=== PATIENT | female | born 1995 | race African-American/Black ===

== ENCOUNTER 2016-12-06 10:55 | Emergency (ER) | payer BC ==
[~2016-12-06] VITALS: Ht 160 cm; Wt 65.2 kg
[2016-12-06 11:03] VITALS: TEMP 36.9; Ht 160 cm; Wt 65.2 kg
[2016-12-06 11:54] LABS: BASO % 0.1 %; BASO ABS # 0.01 K/uL (0-0.2); COMPLETE YES; EOS % 1.5 %; HEMATOCRIT 37.7 % (37-47); IG% 0.1 %; LYMPH % 21.1 %; LYMPH ABS # 1.42 K/uL (1.2-3.4); MEAN CELL VOLUME 85.7 fL (80-100); MEAN CORPUSCULAR HEMOGLOBIN 28.6 pg (25-34); MEAN CORPUSCULAR HGB CONC 33.4 g/dl (32-36); MEAN PLATELET VOLUME 9.9 fL (7.4-10.4); MONO % 15.8 %; NEUT % 61.4 %; PLATELET COUNT 290 K/uL (130-400); WHITE BLOOD COUNT 6.73 K/uL (4.8-10.8)
[2016-12-06 12:11] LABS: BUN/CREATININE RATIO 10.7 (10-20); CALCIUM 9.3 mg/dl (8.5-10.1); CREATININE 0.72 mg/dl (0.60-1.20); POTASSIUM 3.8 mmol/L (3.5-5.1)
[2016-12-06 12:26] VITALS: O2SAT 98
[2016-12-06] MEDS ORDERED: SODIUM CHLORIDE 0.9% 1000ML 1,000 ML IV STA (12:56)
[2016-12-06] MEDS ORDERED: OPTIRAY 320 IV PRN (13:00)
--- NOTE | 2016-12-06 13:43 | DIAGNOSTIC IMAGING REPORT ---
CT ANGIOGRAPHY OF THE CHEST, PULMONARY EMBOLUS PROTOCOL CLINICAL HISTORY: Left-sided chest pain. Elevated d-dimer. COMPARISON STUDY: No previous studies for comparison. TECHNIQUE: Following IV administration of 92 mL of Optiray-320, helical axial images of the chest were obtained utilizing the pulmonary embolus protocol. Maximal intensity projections and sagittal and coronal reformats were viewed on an independent 3D workstation. IV contrast was administered without complication. A dose lowering technique was utilized adhering to the principles of ALARA. CT DOSE: 401.10 mGycm FINDINGS: No pulmonary emboli are identified. There is no evidence of thoracic aortic dissection. The size of the heart is normal. There is no pericardial effusion. There is no pneumothorax or pleural effusion. Central airways are patent. There are innumerable lower lung predominant ill-defined nodular airspace opacities, the largest of which is a 3.9 cm left basilar opacity. There is adjacent mild groundglass opacity. No cavitation is identified. Bony thorax and upper abdomen are unremarkable. IMPRESSION: 1. No pulmonary emboli identified. 2. Innumerable lower lung peripheral predominant ill-defined nodular airspace opacities. While this may simply represent multifocal pneumonia, the appearance raises the possibility of other etiologies. No cavitation to strongly suggest septic emboli although this remains within the differential. Additional considerations include a vasculitis such as Maile's granulomatosis and atypical infection such as fungal infection. Pulmonary consultation might be considered. A follow-up chest CT in one month to ensure resolution is recommended. Electronically signed by: Sloan Slater M.D. 12/06/2016 1:42 PM Dictated Date/Time: 12/06/2016 1:19 PM
[2016-12-06 14:04] LABS: PARTIAL THROMBOPLASTIN RATIO 1.2; PROTHROMBIN TIME (PATIENT) 10.6 SECONDS (9.0-12.0)
[2016-12-06] MEDS ORDERED: NAPR-1169 PO (14:22)
--- NOTE | 2016-12-06 14:22 | EMERGENCY ROOM VISIT NOTE ---
History First contact with patient: 11:21 Chief Complaint: RIB PAIN Stated Complaint: INFLAMMED SIDE History of Present Illness The patient is a 21 year old female who presents to the Emergency Room with complaints of left-sided rib pain. The patient states her discomfort began a few days ago. She states she does not feel that the pain is in her lungs, however does state that the discomfort on her left lateral thorax increases with taking deep breaths. The patient states she feels as if a rib is poking her and she breathes deeply. The patient states she was just recently seen at urgent care, where a chest x-ray was performed. She states this chest x-ray was negative for acute fracture or injury. The patient states urgent care referred the patient here to have labs completed to rule out a blood clot. 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 The patient denies recent travel. The patient states she had previously been taking oral contraceptive pills, however has not been taking them for one month. Patient is sexually active with 1 male partner, but does not feel that she could be at this time. The patient denies chest pain , fevers, tachycardia, palpitations, dyspnea, cough. She is a current smoker, and states she smokes 2-3 cigarettes per day. The patient also admits to marijuana use. Review of Systems A complete 10 point review of systems was reviewed with the patient with pertinent positives and negatives as per history of present illness. All else were negative. Social History Smoking Status: Current Every Day Smoker Smokeless Tobacco Use: No Alcohol Use: none Drug Use: marijuana Marital Status: single Housing Status: lives with significant other Occupation Status: employed Current/Historical Medications Scheduled Naproxen (Naprosyn), 500 MG PO BID Physical Exam Vital Signs Date Time Temp Pulse Resp B/P (MAP) Pulse Ox O2 Delivery O2 Flow Rate FiO2 12/06/16 15:11 68 18 104/70 96 12/06/16 13:40 68 23 93 12/06/16 13:25 76 19 106/61 100 12/06/16 12:55 82 104/70 100 12/06/16 12:40 72 10 100 12/06/16 12:35 68 12/06/16 12:34 70 22 106/52 97 Room Air 12/06/16 12:31 86/52 8/9/17 12:26 98 Room Air 12/06/16 11:03 36.9 103 18 118/67 96 Room Air Physical Exam VITALS: Vitals are noted on the nurse's note and reviewed by myself. Vital signs stable. GENERAL: This is a 21-year-old female, in no acute distress, nondiaphoretic, well-developed well-nourished. SKIN: The skin was without rashes, erythema, edema, or bruising. There is no tenting of the skin. Capillary reflex less than 2 seconds. HEAD: Normocephalic atraumatic. EARS: External auditory canals clear, tympanic membranes pearly doll without erythema or effusion bilaterally. EYES: Pupils equal round and reactive to light and accommodation. Conjunctivae without injection, sclerae without icterus. Extraocular movements intact. NOSE: Patent, turbinates without inflammation or discharge. No sinus tenderness. MOUTH: Mucous membranes moist. Tonsils are not enlarged. Pharynx without erythema or exudate. Uvula midline. Airway patent. Tongue does not deviate. NECK: Supple without nuchal rigidity. No lymphadenopathy. No thyromegaly. Cervical spine is nontender. No JVD. HEART: Regular rate and rhythm without murmurs gallops or rubs. LUNGS: Clear to auscultation bilaterally without wheezes, rales or rhonchi. No dullness to percussion. No retractions or accessory muscle use. ABDOMEN: Positive bowel sounds x 4. Normal tympanic percussion. Soft, nontender, without masses or organomegaly. Centeno sign negative. No guarding or rebound tenderness. MUSCULOSKELETAL: The patient does report mild tenderness on palpation of the left lateral thorax. There is no ecchymosis. No muscle atrophy, erythema, or edema noted. Full range of motion without joint tenderness in all extremities. No tenderness to palpation. Normal gait. Strength 5/5 throughout. NEURO: Patient was alert and oriented to person place and time. Normal sensation to light and sharp touch. Deep tendon reflexes 2+ throughout. No focal neurological deficits. Medical Decision & Procedures ER Provider Diagnostic Interpretation: Labs: CBC without concerning leukocytosis, anemia, chronic cytopenia. D-dimer was positive at 1880. Based on this result, CTA of the chest was ordered with PE protocol. CMP without abnormalities. PT, PTT, INR normal. CTA Chest, PE protocol: FINDINGS: No pulmonary emboli are identified. There is no evidence of thoracic aortic dissection. The size of the heart is normal. There is no pericardial effusion. There is no pneumothorax or pleural effusion. Central airways are patent. There are innumerable lower lung predominant ill-defined nodular airspace opacities, the largest of which is a 3.9 cm left basilar opacity. There is adjacent mild groundglass opacity. No cavitation is identified. Bony thorax and upper abdomen are unremarkable. IMPRESSION: 1. No pulmonary emboli identified. 2. Innumerable lower lung peripheral predominant ill-defined nodular airspace opacities. While this may simply represent multifocal pneumonia, the appearance raises the possibility of other etiologies. No cavitation to strongly suggest septic emboli although this remains within the differential. Additional considerations include a vasculitis such as Maile's granulomatosis and atypical infection such as fungal infection. Pulmonary consultation might be considered. A follow-up chest CT in one month to ensure resolution is recommended. Laboratory Results 12/06/16 11:35 Red Blood Count 4.40, Mean Corpuscular Volume 85.7, Mean Corpuscular Hemoglobin 28.6, Mean Corpuscular Hemoglobin Concent 33.4, Mean Platelet Volume 9.9, Neutrophils (%) (Auto) 61.4, Lymphocytes (%) (Auto) 21.1, Monocytes (%) (Auto) 15.8, Eosinophils (%) (Auto) 1.5, Basophils (%) (Auto) 0.1, Neutrophils # (Auto ) 4.13, Lymphocytes # (Auto) 1.42, Monocytes # (Auto) 1.06, Eosinophils # (Auto ) 0.10, Basophils # (Auto) 0.01 12/06/16 11:35 Test 12/06/16 11:35 White Blood Count 6.73 K/uL (4.8-10.8) Red Blood Count 4.40 M/uL (4.2-5.4) Hemoglobin 12.6 g/dL (12.0-16.0) Hematocrit 37.7 % (37-47) Mean Corpuscular Volume 85.7 fL (80-100) Mean Corpuscular Hemoglobin 28.6 pg (25-34) Mean Corpuscular Hemoglobin Concent 33.4 g/dl (32-36) Platelet Count 290 K/uL (130-400) Mean Platelet Volume 9.9 fL (7.4-10.4) Neutrophils (%) (Auto) 61.4 % Lymphocytes (%) (Auto) 21.1 % Monocytes (%) (Auto) 15.8 % Eosinophils (%) (Auto) 1.5 % Basophils (%) (Auto) 0.1 % Neutrophils # (Auto) 4.13 K/uL (1.4-6.5) Lymphocytes # (Auto) 1.42 K/uL (1.2-3.4) Monocytes # (Auto) 1.06 K/uL (0.11-0.59) Eosinophils # (Auto) 0.10 K/uL (0-0.5) Basophils # (Auto) 0.01 K/uL (0-0.2) RDW Standard Deviation 40.2 fL (36.4-46.3) RDW Coefficient of Variation 12.8 % (11.5-14.5) Immature Granulocyte % (Auto) 0.1 % Immature Granulocyte # (Auto) 0.01 K/uL (0.00-0.02) Prothrombin Time 10.6 SECONDS (9.0-12.0) Prothromb Time International Ratio 1.0 (0.9-1.1) Activated Partial Thromboplast Time 30.6 SECONDS (21.0-31.0) Partial Thromboplastin Ratio 1.2 D-Dimer 1880 ug/L FEU (0-500) Anion Gap 4.0 mmol/L (3-11) Est Creatinine Clear Calc Drug Dose 111.3 ml/min Estimated GFR () 137.8 Estimated GFR (Non- 118.9 BUN/Creatinine Ratio 10.7 (10-20) Calcium Level 9.3 mg/dl (8.5-10.1) Human Chorionic Gonadotropin, Qual NEG (NEG) Medications Administered Medications (Trade) Dose Ordered Sig/Mak Route Start Time Stop Time Status Last Admin Dose Admin Sodium Chloride 1,000 ml @ 999 mls/hr Q1H1M STAT IV 12/06/16 12:56 12/06/16 13:56 DC 12/06/16 13:28 999 MLS/HR ECG Indication: chest pain Rate (beats per minute): 86 Rhythm: normal sinus Comparison ECG Date: no prior available Medical Decision The patient was seen and evaluated as above. Based on her symptoms and presentation for rule out of PE, a d-dimer and basic lab work was drawn. I did review the patient's chest x-ray without noticing abnormalities. This notified of positive d-dimer test and ordered a CTA with contrast of the chest. Coagulation studies were also ordered at this time. CTA was reviewed and negative, but the radiologist did note abnormality on CT scan. I did encourage the patient to follow up with pulmonology for repeat CT scan to be completed in 1 month. The acls nurse did schedule the patient with an appointment on December 27, and did discuss this with the patient. I discussed all results of lab work and imaging with the patient and her boyfriend at bedside. The patient did request to call her mother and speak with her, so she contacted her and put her in speakerphone. The patient's mother did ask about possible causes for her pain, need to discuss with her that I do feel that this is musculoskeletal. The patient states she does feel that she has recently changed her mattress and remove the mattress Topper, and states she believes the pain began the morning after she did this. I spoke with Dr. Salinas regarding the patient's condition throughout the course of her care. The patient was discharged home in good condition. Throughout the course of the patient's care, and to consider different etiologies including: Pulmonary embolism, DVT, costochondritis, pulmonary contusion, cardiac etiology, pneumonia, pleural effusion, spontaneous pneumothorax, malignancy, and others. Medication Reconcilliation Current Medication List: was personally reviewed by me Blood Pressure Screening Patient's blood pressure: Normal blood pressure Impression Primary Impression: Costochondritis Departure Information Dispostion Home / Self-Care Condition GOOD Prescriptions Naproxen (Naprosyn) 500 Mg Tab 500 MG PO BID, #60 TAB Prov: Irma Whitley PA-C 12/06/16 Referrals No Doctor, Assigned (PCP) Forms WORK / SCHOOL INSTRUCTIONS, HOME CARE DOCUMENTATION FORM, IMPORTANT VISIT INFORMATION Patient Instructions ED Chest Pain Costochondritis, My [facility] Additional Instructions You have been treated in the Emergency Department for costochondritis. You have been prescribed naproxen 500 mg to be taken twice daily. Please follow up outpatient with your PCP for further evaluation and management. Please do not take this medication longer than 1 week without direction from a medical provider. Please do not take any other OTC NSAIDs including Advil, Motrin, ibuprofen, Aleve, naproxen in addition to this medication. For pain control, you can use the following eufc-zth-lcwzitn medicines (if >12 yo): - Regular strength (325mg/tab) Tylenol (acetaminophen) 2 tabs every 4-6 hours as needed. Do not exceed 12 tablets in a 24 hour period. Avoid taking more than 4 grams (4000 mg) of Tylenol per day. This includes any other sources of acetaminophen you may take on a regular basis. - Regular strength (200 mg/tab) Advil (ibuprofen) 1-2 tabs every 4-6 hours as needed. Do not exceed a dose of 3200 mg per day (if not already taking Naproxen) . If this is an acute injury, ice can be applied to the area of pain for the first 3 days to help decrease pain and inflammation. After the first 3 days, a heating pad can be used over the area for continued soothing relief. To minimize your discomfort, you can hug a pillow while coughing or sneezing. Additionally, you should continue to force yourself to take nice, deep breaths. Full expansion of the lungs is necessary to prevent the accumulation of fluid in the lung tissue and development of pneumonia. You should schedule a follow-up appointment in 2-3 days with your Primary Care Provider for further evaluation and treatment. You have been given a follow-up appointment with pulmonology regarding abnormal findings on chest CT scan. Please keep this appointment and follow up as directed. You will need a follow-up CT scan in 1 month. Return to the Emergency Department if your current symptoms worsen despite treatment course outlined above, or if you develop any of the following symptoms : intractable pain despite aforementioned treatment course, development of a wet cough, bloody cough, fever, chills, or increased shortness of breath.
[2016-12-06 14:30] LABS: PREG INTERNAL NEGATIVE QC NEG CLEAR BACKGROUND; PREG INTERNAL POSITIVE QC POS CONTROL LINE
[2016-12-06 15:11] VITALS: BP 104/70; PULSE 68; O2SAT 96
== END 2016-12-06 15:12 | disposition home or self-care (01) ==
LOC: C.EDB 10:57
DX: M94.0 Chondrocostal junction syndrome [Tietze] (principal); F17.210 Nicotine dependence, cigarettes, uncomplicated; F12.90 Cannabis use, unspecified, uncomplicated

== ENCOUNTER → 2016-12-21 | Outpatient (CLI) | payer BC ==
[~2016-12-21] MED LIST: NAPR-1169 PO; TRAM-10 PO
[2016-12-21 16:55] LABS: BASO % 0.3 %; BASO ABS # 0.03 K/uL (0-0.2); COMPLETE YES; EOS % 1.3 %; HEMATOCRIT 37.4 % (37-47); IG% 0.3 %; LYMPH % 17.7 %; LYMPH ABS # 1.72 K/uL (1.2-3.4); MEAN CORPUSCULAR HEMOGLOBIN 28.2 pg (25-34); MEAN CORPUSCULAR HGB CONC 33.2 g/dl (32-36); MEAN PLATELET VOLUME 8.8 fL (7.4-10.4); MONO % 13.3 %; NEUT % 67.1 %; PLATELET COUNT 330 K/uL (130-400); WHITE BLOOD COUNT 9.74 K/uL (4.8-10.8)
[2016-12-21 17:04] LABS: URINE APPEARANCE CLEAR (CLEAR); URINE BILIRUBIN NEG (NEG); URINE COLOR DK YELLOW; URINE EPITHELIAL CELL AUTO >30 /lpf (0-5); URINE NITRITE NEG (NEG); URINE SPECIFIC GRAVITY 1.023 (1.000-1.030); UROBILINOGEN POS (NEG); ZZUR CULT IF INDIC CLEAN CATCH NO
[2016-12-21 17:07] LABS: MANUAL MICROSCOPIC REQUIRED? NO; REVIEW REQ? NO
[2016-12-21 17:58] LABS: LYME DISEASE AB IGG NEG (NEG); LYME DISEASE AB IGM NEG (NEG)
--- NOTE | 2016-12-22 07:52 | ECHOCARDIOGRAM REPORT ---
*NOTICE TO RECEIVING [employer] This information is strictly Confidential and protected under [place] law. [place] law prohibits you from making any further disclosure of this information unless further disclosure is expressly permitted by the written consent of the person to whom it pertains or is authorized by law. A general authorization for the release of medical or other information is not sufficient for this purpose. Hospital accepts no responsibility if the information is made available to any other person, INCLUDING THE PATIENT. Interpretation Summary * Name: LEO GOOD Study Date: 12/21/2016 04:01 PM BP: 122/55 mmHg * Patient Location: [facility] HR: 77 * : 1995 (M/d/yyyy) Gender: Female Height: 63 in * Age: 21 yrs Ethnicity: AA Weight: 143 lb * Ordering Physician: Ilda Otero * Performed By: Micky Craft * , [facility] * * Reason For Study: Eval for Valvular Vegetation * BSA: 1.7 m2 * -- Conclusions -- * 1. Normal left ventricular size and systolic function. EF 60-65%. No regional wall motion abnormalities. No left ventricular hypertrophy. No diastolic dysfunction. * 2. No significant valvular abnormalities visualized. * 3. No vegetations noted, however cannot exclude on transthoracic echo. * 4. No prior study available for comparison. Procedure Details * A complete two-dimensional transthoracic echocardiogram was performed (2D, M-mode, Doppler and color flow Doppler). Left Ventricle * Normal left ventricular size and systolic function. EF 60-65%. No regional wall motion abnormalities. No left ventricular hypertrophy. No diastolic dysfunction. Right Ventricle * The right ventricle is normal in size and function. * The right ventricular systolic function is normal as assessed by tricuspid annular plane systolic excursion (TAPSE) (normal >1.5 cm). Atria * The left atrial size is normal. * Right atrial size is normal. * There is no evidence of atrial septal defect, but resolution does not allow assessment for a patent foramen ovale. Mitral Valve * The mitral valve is grossly normal. * There is no mitral valve stenosis. * There is no mitral regurgitation noted. Tricuspid Valve * The tricuspid valve is not well visualized, but is grossly normal. * There is no tricuspid stenosis. * There is trace tricuspid regurgitation. Aortic Valve * The aortic valve is trileaflet. * No hemodynamically significant valvular aortic stenosis. * No aortic regurgitation is present. Pulmonic Valve * The pulmonary valve is inadequately visualized, but the Doppler data is adequate for interpretation. * There is no pulmonic valvular stenosis. * There is no significant pulmonary regurgitation. Great Vessels * The aortic root is normal size. * Ascending aorta of normal dimension Pericardium/Pleural * There is no pericardial effusion. Great Vessels * Normal inferior vena cava size and collapsability with sniff indicates a normal right atrial pressure of 3 mmHg MMode 2D Measurements and Calculations IVSd 0.94 cm IVSs 1.1 cm LVIDd 4.0 cm LVIDs 2.7 cm LVPWd 0.84 cm LVPWs 1.1 cm IVS/LVPW 1.1 FS 32.4 % EDV(Teich) 71.4 ml ESV(Teich) 27.7 ml EF(Teich) 61.3 % EDV(cubed) 65.7 ml ESV(cubed) 20.3 ml EF(cubed) 69.1 % % IVS thick 20.2 % % LVPW thick 27.3 % LV mass(C)d 109.8 grams LV mass(C)dI 65.5 grams/m\S\2 LV mass(C)s 83.4 grams LV mass(C)sI 49.7 grams/m\S\2 CO(Teich) 3.9 l/min CI(Teich) 2.3 l/min/m\S\2 SV(Teich) 43.8 ml SI(Teich) 26.1 ml/m\S\2 CO(cubed) 4.0 l/min CI(cubed) 2.4 l/min/m\S\2 SV(cubed) 45.4 ml SI(cubed) 27.1 ml/m\S\2 Ao root diam 2.9 cm Ao root area 6.5 cm\S\2 ACS 2.0 cm LA dimension 2.9 cm asc Aorta Diam 2.3 cm LA/Ao 1.0 LVAd ap4 33.8 cm\S\2 LVLd ap4 8.8 cm EDV(MOD-sp4) 103.0 ml LVAs ap4 17.1 cm\S\2 LVLs ap4 6.9 cm ESV(MOD-sp4) 34.0 ml EF(MOD-sp4) 67.0 % LVAd ap2 31.7 cm\S\2 LVLd ap2 8.8 cm EDV(MOD-sp2) 92.0 ml LVAs ap2 18.8 cm\S\2 LVLs ap2 7.5 cm ESV(MOD-sp2) 39.0 ml EF(MOD-sp2) 57.6 % CO(MOD-sp4) 6.1 l/min CI(MOD-sp4) 3.7 l/min/m\S\2 SV(MOD-sp4) 69.0 ml SI(MOD-sp4) 41.1 ml/m\S\2 CO(MOD-sp2) 4.7 l/min CI(MOD-sp2) 2.8 l/min/m\S\2 SV(MOD-sp2) 53.0 ml SI(MOD-sp2) 31.6 ml/m\S\2 Doppler Measurements and Calculations MV E max anjali 114.1 cm/sec MV A max anjali 60.3 cm/sec MV E/A 1.9 MV P1/2t max anjali 129.3 cm/sec MV P1/2t 70.9 msec MVA(P1/2t) 3.1 cm\S\2 MV dec slope 534.1 cm/sec\S\2 MV dec time 0.24 sec Ao V2 max 144.2 cm/sec Ao max PG 8.3 mmHg Ao max PG (full) 2.3 mmHg LV V1 max PG 6.0 mmHg LV V1 max 122.8 cm/sec TV E max anjali 74.6 cm/sec PA V2 max 104.8 cm/sec PA max PG 4.4 mmHg TR max anjali 197.4 cm/sec
[2016-12-25 12:12] LABS: QUANTIF TB AG-NIL 0.11 IU/ML; QUANTIFERON NIL 0.12 IU/ML
[2016-12-28 12:34] LABS: FUNGITELL (1-3)-B-D-GLUCAN* <31 pg/mL; FUNGITELL INTERP NEGATIVE; MYELOPEROXIDASE AB <1.0 AI (<1.0)
== END | disposition home or self-care (01) ==
LOC: C.CPL 15:38
PROVIDERS: ATTEND Physician Assistant
DX: R91.8 Other nonspecific abnormal finding of lung field (principal); R93.8 Abnormal findings on diagnostic imaging of other specified body structures

== ENCOUNTER 2016-12-22 17:37 | Inpatient (IN) | payer BC ==
[~2016-12-22] VITALS: Ht 160 cm; Wt 65.0 kg
[~2016-12-22 17:37] MED LIST changes: -CLINDAMYCIN PHOS 150 MG/ML 2 ML VIAL ONE; -DEXAMETHASONE SOD INJ 4 MG/ML VIAL ONE; -FENTANYL CITRATE INJ 50 MCG/1 ML 2 ML VIAL ONE; -GLYCOPYRROLATE INJ 0.2 MG/ML VIAL ONE; -MIDAZOLAM HCL 1 MG/ML 2ML VIAL ONE; -NEOSTIGMINE METHYLSULFATE 5 MG/5 ML SYR ONE; -ONDANSETRON INJ 2 MG/ML 2 ML VIAL ONE; -OPTIRAY 320 IV PRN; -PHENYLEPHRINE 100MCG/ML 5ML SYR ONE; -PROPOFOL IV EMULSION 10 MG/ML 20 ML VIAL IV ONE; -ROCURONIUM BROMIDE 10 MG/ML 5 ML VIAL IV ONE; -TRAM-10 PO
[2016-12-22 19:00] VITALS: BP 114/70; PULSE 89; TEMP 37; Ht 160 cm; Wt 65.0 kg
--- NOTE | 2016-12-22 19:33 | History and Physical ---
History & Physical Date & Time of Service: Dec 22, 2016 at 19:32 Chief Complaint: Pneumonia, Pleurisy Primary Care Physician: No Doctor, Assigned History of Present Illness Source: patient, family (mother and father), clinic records, hospital records Kendall Odom is a 21 year old -[place] [employer] Student who present as a direct admission from Dr Naylor's Pulmonology clinic due to chest pain, shortness of breath and significant progression of nodular opacities on her CT Her symptoms started on November 28 with left sided pleuritic chest pain and shortness of breath. Her symptoms slowly progressed and so she went to urgent care and subsequent was sent to the ER on December 06. She underwent a CT for PE which was negative for a pulmonary embolism but showed innumerable lower lung peripheral predominant ill-defined nodular airspace opacities. She was set up with O/P pulmonology and treated with ibuprofen and tramadol. 1 week previous her symptoms progressed and she started having slowly progressing right sided chest pain, sharp, worse on deep inspiration and lying down, associated with increasing dyspnea on exertion, severity 8/10 at worse, 5/10 currently. She is not short of breath at rest but notes getting easily short of breath climbing up stairs and on brisk walking. Due to her progression of symptoms her pulmonology appointment was brought up. She received numerous lab tests including an ESR [address] scan which showed progression of her nodular opacities. Because of the rapid progression of nodular densities she was brought in as a direct admission for a quicker work up. She denies any recent travel overseas in the last year and has mostly travelled between [place] and [place]. She has not travelled to the [facility]. She stopped her OCP 1 month previously. She denies any hemoptysis of fevers. She has lost weight over slowly since her Freshman year - but she feels this is mostly from stress and is around 10-15lb. Past Medical/Surgical History Lung nodules Family History MGM - rheumatoid arthritis Father - Type 2 diabetes Mother, 2 sisters and 2 brothers - no medical issues She denies any family history of sarcoidosis or lupus. Social History Smoking Status: Current Every Day Smoker Smokeless Tobacco Use: No Alcohol Use: socially Drug Use: marijuana (daily) Marital Status: single Housing status: lives with roommate Occupational Status: [employer] student Immunizations History of Influenza Vaccine: Unknown History of Tetanus Vaccine?: Unknown History of Pneumococcal: No History of Hepatitis B Vaccine: Yes Multi-Drug Resistant Organisms History of MDRO: No Allergies Coded Allergies: Penicillins (Unverified Adverse Reaction, Intermediate, VOMITTING, 12/06/16) Home Medications Scheduled Naproxen (Naprosyn), 500 MG PO BID Review of Systems Constitutional: No fever, No chills Eyes: No worsening of vision ENT: No hearing loss Respiratory: + cough, + dyspnea on exertion, No sputum, No wheezing, No dyspnea at rest, No hemoptysis Cardiovascular: + chest pain, No orthopnea, No PND, No edema, No claudication, No palpitations Abdomen: + constipation (while on tramadol), No pain, No nausea, No vomiting, No diarrhea Musculoskeletal: No joint pain, No muscle pain Genitourinary - Female: No dysuria, No urinary frequency, No urinary urgency Psychiatric: No depression symptoms Endocrine: + fatigue, No excessive thirst, No excessive urination Hematologic / Lymphatic: No abnormal bleeding/bruising Integumentary: No rash, No itch Physical Exam General Appearance: WD/WN, no apparent distress Head: normocephalic, atraumatic Eyes: normal inspection, PERRL, EOMI Neck: supple, no adenopathy, thyroid normal, no JVD, trachea midline Respiratory/Chest: chest non-tender, no respiratory distress, no accessory muscle use, + crackles (fine on back bilaterally, R=L), + pertinent finding ( patient feels left sided chest expansion less than right; equal on examination) Cardiovascular: regular rate, rhythm, no edema, no murmur, normal peripheral pulses Abdomen/GI: normal bowel sounds, non tender, soft Back: no CVA tenderness Extremities/Musculoskelatal: no calf tenderness, normal capillary refill, no pedal edema Neurologic/Psych: lining feller blindstitch II-XII nml as tested, no motor/sensory deficits, alert, normal mood/affect, oriented x 3 Skin: normal color, warm/dry, no rash Diagnostics Diagnostic Radiology Addendum: A neoplastic etiology is considered unlikely given the rapid progression and patient's age. The only neoplastic process within the differential is lymphoma. Electronically signed by: Sloan Slater M.D. 12/22/2016 3:37 PM Dictated Date/Time: 12/22/2016 3:[address] OF THE CHEST WITH IV CONTRAST CLINICAL HISTORY: Lung nodule. COMPARISON STUDY: Chest CT December 06, 2016. TECHNIQUE: Following IV administration of Optiray-320, helical axial images of the chest were obtained. Sagittal and coronal reconstructions were viewed as well as maximal intensity projections on an independent 3-D workstation. A dose lowering technique was utilized adhering to the principles of ALARA. CT DOSE: 165.42 mGy.cm FINDINGS: No enlarged axillary, mediastinal or hilar lymph nodes are present. The size of the heart is normal. There is no pericardial effusion. Central airways are patent. There is no pneumothorax or pleural effusion. There has been significant progression of innumerable lower lobe predominant ill-defined nodular opacities and CT of December 06, 2016. These are most confluent within the left lower lobe. There is peripheral groundglass opacity. Numerous air bronchograms are noted. These are within a peribronchial vascular distribution. Size and number of these lesions has significantly progressed since exam of December 06, 2016. Measurement is difficult due to adjacent groundglass opacity but a well-defined 1.3 cm right middle lobe nodule shown on image 157 previously measured 0.6 cm. Bony thorax and upper abdomen are unremarkable. IMPRESSION: Significant progression of lower lobe predominant innumerable ill-defined nodular opacities in a peribronchovascular distribution since CT of December 06, 2016. The findings are nonspecific and differential considerations include an atypical infectious process such as a fungal infection. In addition, a vasculitis could have this imaging appearance. Alveolar sarcoidosis is within the differential. Additional considerations include cryptogenic organizing pneumonia and drug related process. Electronically signed by: Sloan Slater M.D. 12/22/2016 3:19 PM Dictated Date/Time: 12/22/2016 2:58 PM Impression Assessment and Plan 21 year old female with chest pain, shortness of breath and progressive nodular opacities on CT Chest Lung nodular opacities - differential includes infectious(bacterial/fungal/IE)/ autoimmune/oncologic (lymphoma). Suspect given age and -Lao ethnicity sarcoidosis is most likely diagnosis. - Will repeat CBC, CMP and ESR. Other labs pending from the office include FLORIDALMA reflex, DIONTE level, ANCA reflex, quantiferon, anti-GBM - Lyme and RF negative - Discussed with Dr Ott. Plan for urine protein/Cr ratio, 24 hour collection of calcium. Broad spectrum antibiotics. Hold off steroids. Consider consult thoracic surgery for biopsy if required. - Consult Pulmonology, NPO after midnight for potential bronchoscopy in the morning - Consult Infectious Disease - Consult Cardiology to rule out IE with DUANE VTE Prophylaxis - Young age and mobile therefore will hold off chemical prophylaxis pending clinical course - ADRIANA + SCDs Code - Full Disposition - observation status Attending Addendum: I have physically seen and examined this patient, have supervised the medical residents activities, and agree with the H&P as noted above with the following exceptions as noted.\ The patient presents as a direct admission from outpatient pulmonary office for an abnormal CT and associated chest pain or shortness of breath. The patient denies palpitations, lower extremity swelling, vision change, hearing change, sore throat, fevers, chills, sweats, weight change, fatigue, nausea, vomiting, diarrhea, abdominal pain, pelvic pain, blood in urine or stool , dysuria, urinary frequency or urgency, lightheadedness, dizziness, headache, memory loss, rash, abnormal bruising or bleeding, imbalance, focal or generalized weakness, numbness or tingling in arms or legs, generalized arthralgias or myalgias, back or neck pain, night sweats. The review of systems is otherwise negative other than for that already noted above, and at least 10 systems have been reviewed. The patient is awake, well-developed and adequately nourished, alert and oriented 3, normocephalic and atraumatic, lying in bed and in no acute distress. HEENT--PERRL, EOMI, mucous membranes and oropharynx dry. Neck--supple, no JVD or bruits, thyroid normal, trachea midline, no adenopathy. Heart--normal S1 and S2, no extra beats, no murmurs, rubs or gallops. Lungs--few scattered crackles bilaterally with good air movement, no respiratory distress, no accessory muscle use. Abdomen--normal bowel sounds and soft, nontender and nondistended, no hernias or masses, no organomegaly. Extremities--no cyanosis, clubbing or edema. There are good distal pulses b/l. Dermatologic--normal skin turgor, normal color, warm and dry, no abnormal lymph nodes, no rash. Neurologic--cranial nerves II through XII grossly intact, motor and sensory examination normal. Rheumatologic--normal range of motion, nontender, muscles and joints. Psychiatric--normal affect. Assessment and Plan: 1. Progressive multinodular lung disease with associated chest pain and shortness of breath--the patient will be admitted to the medical floor. Thorough lab workup has either been performed or is pending at this time. Vancomycin IV, ceftriaxone IV and azithromycin IV per pulmonology recommendations. No steroids or fungal coverage per pulmonology Consult Pulmonology Consult Infectious Disease Consult Cardiology Patient be nothing by mouth after midnight for possible possible bronchoscopy in the morning. Level of Care Med/Surg Advanced Directives Existing Advance Directive: No Existing Living Will: No Existing Power of Director Of Programming: No Resuscitation Status FULL RESUSCITATION VTE Prophylaxis VTE Risk Assessment Done? Y/N: Yes Risk Level: Very Low Given or contraindicated: T.E.D. Stockings, SCD's, Treatment not indicated Social Service Consult None Apply Additional Copies To Rocky Naylor M.D.
[2016-12-22] MEDS ORDERED: VANCOMYCIN INJ 1,000 MG in SODIUM CHLORIDE 0.9% 250ML 250 ML IV STA (22:04)
[2016-12-22] MEDS ORDERED: ACETAMINOPHEN 325 MG TAB PO PRN ×2 (22:15→23:00)
[2016-12-22] MEDS ORDERED: ONDANSETRON INJ 2 MG/ML 2 ML VIAL IV PRN (22:15)
[2016-12-22] MEDS ORDERED: VANCOMYCIN CONSULT ACTIVE PRN (22:45)
[2016-12-22] MEDS: CEFTRIAXONE SOD INJ 1 GM in DEXTROSE 5% ADD-VANTAGE 50ML 50 ML IV SCH ×2 (22:45→23:32)
[2016-12-22] MEDS ORDERED: AZITHROMYCIN IV 500 MG in DEXTROSE 5% 250ML 250 ML IV ONE (22:45)
[2016-12-22] MEDS ORDERED: ALBUT/IPRATROP 3MG/0.5MG NEB 3 ML VIAL INH PRN (23:00)
[2016-12-22 23:04] LABS: BASO % 0.4 %; BASO ABS # 0.03 K/uL (0-0.2); COMPLETE YES; EOS % 2.9 %; IG% 0.3 %; LYMPH % 29.5 %; MEAN CELL VOLUME 84.4 fL (80-100); MEAN CORPUSCULAR HEMOGLOBIN 28.5 pg (25-34); MEAN CORPUSCULAR HGB CONC 33.8 g/dl (32-36); MEAN PLATELET VOLUME 8.9 fL (7.4-10.4); MONO % 12.9 %; PLATELET COUNT 291 K/uL (130-400); RED BLOOD COUNT 3.79 M/uL (4.2-5.4); WHITE BLOOD COUNT 7.13 K/uL (4.8-10.8)
[2016-12-22 23:29] LABS: BLOOD UREA NITROGEN 10 mg/dl (7-18); BUN/CREATININE RATIO 17.3 (10-20); CALCIUM 8.9 mg/dl (8.5-10.1); CARBON DIOXIDE 34 mmol/L (21-32); CHLORIDE 103 mmol/L (98-107); CREATININE 0.59 mg/dl (0.60-1.20); GLUCOSE 95 mg/dl (70-99); POTASSIUM 3.8 mmol/L (3.5-5.1); SODIUM 141 mmol/L (136-145)
[2016-12-22] MEDS ORDERED: IV FLUIDS COMPLETED PRN (23:45)
[2016-12-23 00:11] VITALS: BP 105/69; PULSE 59; TEMP 36.9; O2SAT 100
[2016-12-23] MEDS: TRAMADOL HCL 50 MG TAB PO PRN ×3 (00:26→19:41)
[2016-12-23] MEDS ORDERED: VANCOMYCIN INJ 1,600 MG in SODIUM CHLORIDE 0.9% 500ML 500 ML IV SCH ×4 (01:00→02:00)
[2016-12-23 01:02] LABS: URINE PROTIEN/CREAT RATIO 0.2 (0-0.2); URINE TOTAL PROTEIN 16.4 mg/dl (0-11.9)
--- NOTE | 2016-12-23 03:50 | Pharmacy Progress Note ---
Pharmacy Antibiotic Consult Date of Service: Dec 23, 2016. Pharmacy Dosing Scope * Pharmacy is consulted to initiate Vancomycin IV dosing, order labs Subjective * The patient is a 21 year old female admitted on Dec 22, 2016 at 18:12 with signs/symptoms of PNX, pleurisy. Objective Height (Feet): 5 Height (Inches): 3.00 Weight (Kilograms): 65.000 Lab Results (24hrs): Test 12/22/16 22:32 12/23/16 00:00 White Blood Count 7.13 K/uL (4.8-10.8) Red Blood Count 3.79 M/uL (4.2-5.4) Hemoglobin 10.8 g/dL (12.0-16.0) Hematocrit 32.0 % (37-47) Mean Corpuscular Volume 84.4 fL (80-100) Mean Corpuscular Hemoglobin 28.5 pg (25-34) Mean Corpuscular Hemoglobin Concent 33.8 g/dl (32-36) Platelet Count 291 K/uL (130-400) Mean Platelet Volume 8.9 fL (7.4-10.4) Neutrophils (%) (Auto) 54.0 % Lymphocytes (%) (Auto) 29.5 % Monocytes (%) (Auto) 12.9 % Eosinophils (%) (Auto) 2.9 % Basophils (%) (Auto) 0.4 % Neutrophils # (Auto) 3.85 K/uL (1.4-6.5) Lymphocytes # (Auto) 2.10 K/uL (1.2-3.4) Monocytes # (Auto) 0.92 K/uL (0.11-0.59) Eosinophils # (Auto) 0.21 K/uL (0-0.5) Basophils # (Auto) 0.03 K/uL (0-0.2) RDW Standard Deviation 39.2 fL (36.4-46.3) RDW Coefficient of Variation 12.7 % (11.5-14.5) Immature Granulocyte % (Auto) 0.3 % Immature Granulocyte # (Auto) 0.02 K/uL (0.00-0.02) Erythrocyte Sedimentation Rate 65 mm/hr (0-21) Sodium Level 141 mmol/L (136-145) Potassium Level 3.8 mmol/L (3.5-5.1) Chloride Level 103 mmol/L (98-107) Carbon Dioxide Level 34 mmol/L (21-32) Anion Gap 4.0 mmol/L (3-11) Blood Urea Nitrogen 10 mg/dl (7-18) Creatinine 0.59 mg/dl (0.60-1.20) Est Creatinine Clear Calc Drug Dose 135.6 ml/min Estimated GFR () > 150.0 Estimated GFR (Non- 130.1 BUN/Creatinine Ratio 17.3 (10-20) Random Glucose 95 mg/dl (70-99) Calcium Level 8.9 mg/dl (8.5-10.1) Urine Random Creatinine 110.0 mg/dl Urine Random Total Protein 16.4 mg/dl (0-11.9) Urine Protein/Creatinine Ratio 0.2 (0-0.2) Micro Results: * Blood cultures are pending. Recent Pertinent Medications * Patient is also receiving Azithromycin 500mg IV every 24 hours and Rocephin 1gm IV every 24 hours Assessment & Plan * Loading dose: 1600 mg IV (~25mg/kg) X 1 dose then 1gm IV (~ 15.4mg/kg) every 8 hours. * Goal trough level estimate: between 16-19 mcg/mL. * Trough level is ordered for 0130 on 12/24/16 just prior to the 4th vanco dose. Pharmacy will continue to follow and will adjust dose/frequency as necessary. Thank you
[2016-12-23 08:09] VITALS: BP 93/60; PULSE 76; TEMP 36.6; O2SAT 99
--- NOTE | 2016-12-23 08:56 | Progress Note ---
Progress Note Date of Service Dec 23, 2016. Progress Note ID Consult Dictated #[id number] A/P: 1. Lung nodules, wide ddx - fungal, sarcoid, doubt bacterial, doubt malignancy, ? septic emboli (no risk factors found), vasculitis Suggest: -would hold abx pending biospy and culture, pt without cough, doubt she could produce sputum specimen -low risk for TB, suggest IGRA, afb smear and culture at time of biopsy -could check DIONTE level, may be elevated in sarcoid -Awaiting biopsy, currently NPO, please send routine, fungal and AFB cultures at time of biopsy, in addition to pathology -Will follow biopsy results -thank you
[2016-12-23] MEDS ORDERED: VANCOMYCIN INJ 1,000 MG in SODIUM CHLORIDE 0.9% 250ML 250 ML IV SCH ×2 (09:00→10:00)
[2016-12-23] MEDS ORDERED: NURSING VERBAL MED ORDER ONE (09:15)
--- NOTE | 2016-12-23 09:54 | INFECT. DISEASE CONSULTATION ---
DATE OF CONSULTATION: 12/23/2016 REQUESTING PHYSICIAN: Manuel Cervantes MD HISTORY OF PRESENT ILLNESS: This is a 21-year-old female who is currently a student at [employer] who was admitted from the pulmonary office secondary to worsening right-sided chest pain. This began sometime ago when she was initially followed at an urgent care center. She was sent to the Emergency Room to rule out PE, which she did not have PE; however, she was found to have bilateral lung nodules. She continued with chest pain and had a pulmonary office visit yesterday. A recent chest CT done yesterday as an outpatient showed progression in a short period of time and for that reason she was admitted to the hospital for further workup. She was placed in airborne isolation. She continues to have chest pain especially with deep inspiration. She denies any cough, hemoptysis, night sweats, fevers or chills. She is originally from [place]. She traveled to [facility] on vacation in 2014, but otherwise has had no travel outside of the country. She has had some weight loss, but this has been unprogressive over a number of years and certainly has been recent. Her appetite has been stable. She has no known tuberculosis contacts. She does not have any employment history to increase TB exposure such as working in penitentiary or nursing facility. She currently is on multiple antibiotics consisting of vancomycin, azithromycin and ceftriaxone. She states she was told she was being admitted for biopsy, but has not been told when this will be scheduled. However, she has been made n.p.o. She has been afebrile since admission. She is tolerating antibiotics. She denies any coughing, shortness of breath or wheezing. She does have pleuritic chest pain, but also has pain especially on the right side at rest, which she attributes a 5/10. She denies any nausea, vomiting, diarrhea or abdominal pain. She has no urinary complaints. She has no skin rash. She has no joint or muscle pain. She has no joint swelling. She has no headaches or visual changes. She does have a normal white blood cell count at 7.1; however, her sed rate is elevated at 65. She has been afebrile since admission. A CAT scan of the chest was read as multiple nodules, which could be infectious, fungal in nature and/or vasculitis or sarcoidosis. She did not have any mediastinal or axillary lymphadenopathy. Lymphoma was considered to be less likely diagnosis secondary to the rapid progression of her nodular disease. She denies any sick contacts. All remaining review of systems are reviewed and are unremarkable. PAST MEDICAL AND SURGICAL HISTORY: Otherwise unremarkable. FAMILY HISTORY: Significant for rheumatoid arthritis. SOCIAL HISTORY: Significant for daily tobacco use. She does drink on occasion. She does use marijuana daily. She is a student at [employer] and lives with her roommate. Again, she denies any sick contacts. Her additional social history is as above. ALLERGIES: SHE HAS A REPORTED ALLERGY TO PENICILLIN; HOWEVER, UPON QUESTIONING, SHE STATES SHE HAD A GI UPSET ASSOCIATED WITH THIS. CURRENT MEDICATIONS: Include azithromycin, vancomycin, ceftriaxone, tramadol, DuoNebs, Tylenol and Zofran. PHYSICAL EXAMINATION: VITAL SIGNS: She is afebrile, pulse 76, respiratory rate 16, blood pressure 93/60, and oxygen saturation is 99-100% on room air. GENERAL: Awake, alert and oriented x3. She is in no acute distress. HEENT: Mucous membranes are moist. Extraocular muscles are intact. HEART: Regular. LUNGS: Clear bilaterally. ABDOMEN: Soft, nontender, nondistended. There is no edema. SKIN: Without rash. LABORATORY STUDIES: CBC reveals a white blood cell count of 7.1, hemoglobin 10.8 and platelets are 291. Sed rate is 65. Chemistry panel reveals a sodium of 141, potassium 3.8, chloride 103, bicarbonate 34, BUN 10, creatinine 0.5, and glucose is 95. UA showed 16.4 total protein on a random urine. Blood cultures are pending. Sputum cultures have been ordered. No additional imaging has been ordered since admission; however, she did have an outpatient CAT scan of the chest done yesterday, which showed significant progression of lower lobe predominant ill-defined nodular opacities since 12/06/2016. There are nonspecific in nature. There is no axillary or mediastinal lymphadenopathy. ASSESSMENT AND PLAN: Lung nodules, infectious versus noninfectious. She is on multiple antibiotics; however, she is clinically stable. These can beheld pending culture. When biopsy is obtained, certainly, this should be sent for pathology as well as routine fungal and AFB cultures. Quantiferon could be ordered; however, I do not see any significant TB risk in this patient. Certainly, sarcoidosis would be on the differential and an Bert level can be checked as well. We will follow along with you pending biopsy results. Thank you for this consultation. TERRY
[2016-12-23] MEDS: SODIUM CHLORIDE 0.9% 1000ML 1,000 ML IV SCH ×3 (10:00→22:45)
[2016-12-23 11:19] LABS: FERRITIN 62.3 ng/ml (8.0-388.0)
--- NOTE | 2016-12-23 11:43 | SURGICAL CONSULTATION ---
DATE OF CONSULTATION: 12/23/2016 DATE OF CONSULTATION: 12/23/2016 REASON FOR CONSULTATION: Pulmonary nodules. HISTORY OF PRESENT ILLNESS: This young 21-year-old female is has a past medical history significant for mild anemia which is chronic and marijuana use, who developed acute left-sided chest pain about 2-1/2 weeks ago and underwent a CT scan which showed multiple pulmonary nodules which had a predilection for her lower lobes. She presented to Dr. Naylor's office yesterday and a repeat CT scan was done which showed these had rapidly progressed. She now had increasing symptoms on her right side which was pleuritic in nature. She has no travel or exposures that would contribute to these findings. She feels that she has lost weight. I had a long talk with the patient and her significant other and her parents at the bedside this morning on 12/23/2016. The patient denies cough. She does get mild dyspnea if she pushes herself. She has had no hemoptysis. She denies joint swelling. She really had no pain other than that described initially in her left chest and now in her right. It is pleuritic in nature. She has had no palpitations. I was asked to evaluate her from a surgical standpoint about possible surgical biopsy. PAST MEDICAL HISTORY: 1. Mild anemia (chronic). 2. History of marijuana use. PAST SURGICAL HISTORY: None. MEDICATIONS: control pills. ALLERGIES: GI UPSET WITH PENICILLIN. SOCIAL HISTORY: The patient is originally from [place]. She is the youngest of 5. She is a student at [employer] and lives with a roommate and her significant other. She is currently taking year off from school. She is studying film. 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 She has been working 12-14 hour shifts. She does smoke marijuana regularly. She does not use any other drugs and occasionally will have an alcoholic beverage. FAMILY MEDICAL HISTORY: The patient's parents and her 4 siblings are all without significant past medical histories except for rheumatoid arthritis in a more distant relative. REVIEW OF SYSTEMS: The patient states she has lost some weight. She feels that she may have lost 8-10 pounds over the last 6 months or so. She states that her scales are unreliable; however her father states quite assuredly that she has lost weight. She has had no night sweats. She denies palpitations. She has pleuritic type chest pain that was initially in the left chest and now in the right chest. She has had no diarrhea or abdominal pain. She has had no nausea or vomiting. She has had no peripheral edema. She has had no skin breakdown. She had no visual or auditory symptoms. PHYSICAL EXAMINATION: GENERAL: This is a well-developed, well-nourished -Lith[place]ian female who stands 5 feet 3 inches tall and weighs 143 pounds. HEAD, EYES, EARS, NOSE, AND THROAT: Her extraocular movements are intact. Pupils are equal, round and reactive. Her sclerae are anicteric. She has no nasal polyps. Her teeth are in excellent repair. She has no oral mucosal lesions. NECK: Supple. She has no supraclavicular, cervical or axillary adenopathy. CHEST: She does have some mildly decreased breath sounds but is moving air well without wheezing. I detect no rub. HEART: She has a regular rate and rhythm of her heart. ABDOMEN: Soft, nontender with no surgical incisions. She has no evidence of ascites or abdominal aortic aneurysm. She has excellent peripheral pulses with no peripheral edema. No joint effusions. NEUROLOGIC: She is awake, alert and oriented. Cranial nerves II-XII are intact. DATA: CT scan compared from 12/06/2016 to 12/22/2016 respectively show enlarging is noteworthy. I had a long talk with the family and I have discussed this case with Dr. Naylor and Dr. Ott as well as cardiology. Her echocardiogram which was done transthoracically shows no evidence of vegetations on the tricuspid valve. I am not sure that doing a DUANE is going to add much to this. ASSESSMENT AND PLAN: Multiple pulmonary nodules which are essentially asymptomatic other than pleuritic chest pain. These are rapidly enlarging. The differential diagnosis is quite long and esoteric. Septic emboli is lower on the list as she has no elevated white count and no fevers. Her TTE shows no obvious tricuspid vegetations.Her ESR is a bit elevated at 69, but she just does not appear to be septic. There are other possibilities, but all of these are fairly rare. Cryptococcosis or blastomycosis is a possibility. Sarcoidosis and rheumatoid arthritis are also possibilities. A lymphoma, tuberculosis and of course further down the list in my opinion would be a malignancy, although benign metastasizing leiomyomas of the uterus can occur and epithelioid hemangioendothelioma could also be a possibility. I would be more than willing to perform a thoracoscopic or robotic assisted thoracoscopic biopsy of these nodules; however, I believe they are amenable to a needle biopsy. They are fairly peripheral. I will discuss the possibility of an electromagnetic navigational bronchoscopy with Dr. Ott although I feel that probably a CT guided needle biopsy or minimally invasive surgical biopsy would be best. TERRY
--- NOTE | 2016-12-23 12:23 | Pulmonary Consultation ---
History General Date of Service: Dec 23, 2016. Stated Complaint: Pneumonia, Pleurisy HPI The patient is a 21 year old female who presents to [facility] with complaints of Pneumonia, Pleurisy. The patient's primary care provider is No Doctor, Assigned. 21-year-old female admitted to [facility] for chest pain and multiple pulmonary nodules. Her past medical history is significant for tobacco use 1-3 cigarettes per day 1 year and daily marijuana use for the past 3 years. She notes her primary mode of delivery is cigar papers but also uses water pipes for inhalation as well. Patient started developing pleuritic type chest pains in November 2016. Her symptoms were notably progressive requiring an emergency room visit on 12/06/2016 with elevated d-dimer and CT angiogram showing- -----. since the time of her emergency room visit she has seen Dr. Rocky Naylor as well as provider Ilda Wright in the pulmonary division. Her signs and symptoms become more progressive over that time. Initially her pleurisy was only noted with movement and prior to admission was constant in nature. He gets so severe she was notably awakened from her sleep. She also developed dyspnea with exertion as well as change in body position. The day prior to her admission the patient did note possible low-grade subjective fever. During interview the patient's boyfriend and parents were in the room and helped with the history. Today the patient notes mild intermittent right-sided pleuritic- type chest pain. Positive: Previously One episode of constipation but denied melena, unintentional weight loss of 8 pounds Denies: Reflux signs and symptoms, dysphagia, odynophagia or cough, wheezing, cough, fever, urinary symptoms, hemoptysis, epistaxis, right naris, night sweats , chronic cough, GI signs or symptoms, abnormal menstruation, pelvic discomfort or pain Work-Up to Date WBC (12/22/16) 7K Hgb (12/22/16) 11 (L) Hct (12/22/16) 32 (L) PLT (12/22/16) 291K ESR (12/22/16) 65 (12/21/16) 69 D-Dimer (12/06/16) 1880 HCG (12/06/16) negative BUN (12/22/16) 0.59 (L) ALB (12/21/16) 3.3 (L) Urine (12/21/16) Cr: 110 Pro: 16.4 (H) Ratio: 0.2 (WNL) RA (12/21/16) <10.0 Pending: DIONET FLORIDALMA screen Anti-Proteinase 3 Anti-Myeloperoxidase ANCA Glomerular Base Memb Ab Historian: patient, family, EMS Review of Systems Constitutional: reports: as stated in HPI Eyes: reports: no symptoms ENT: reports: no symptoms Cardiovascular: reports: no symptoms Respiratory: reports: as stated in HPI Gastrointestinal: reports: as stated in HPI Genitourinary - Female: reports: no symptoms Musculoskeletal: reports: as stated in HPI Integumentary: reports: no symptoms Neurologic: reports: no symptoms Psychiatric: reports: no symptoms Endocrine: no symptoms Hematologic / Lymphatic: no symptoms Allergic / Immunologic: no symptoms Past Medical History Past Medical History: Exercise-induced asthma diagnosed in the third grade--prescribed rescue inhaler with symptomatic relief Seasonal allergies Past Surgical History: no surgical history Family History Emphysema Dementia Social History Exercise-induced asthma diagnosed in the third grade--prescribed rescue inhaler with symptomatic relief Seasonal allergies Hx Tobacco Use In Past Year?: Yes Smoking Status: Current Every Day Smoker Marital status: single Housing status: lives with roommate Occupational Status: [employer] student Immunizations History of Influenza Vaccine: Unknown History of Tetanus Vaccine?: Unknown History of Pneumococcal: No History of Hepatitis B Vaccine: Yes History of MDRO History of MDRO: No Allergies Coded Allergies: Penicillins (Unverified Adverse Reaction, Intermediate, VOMITTING, 12/06/16) Current Medications Reported Home Medications Medications Dose Route/Sig Max Daily Dose Days Date Category Naprosyn (Naproxen) 500 Mg Tab 500 Mg PO BID 12/06/16 Rx Physical Physical Exam Vital Signs: Date Time Temp Pulse Resp B/P (MAP) Pulse Ox O2 Delivery O2 Flow Rate FiO2 12/23/16 09:30 Room Air 12/23/16 08:09 36.6 76 16 93/60 (71) 99 Room Air 12/23/16 00:11 36.9 59 16 105/69 (81) 100 Room Air 12/23/16 00:00 Room Air 12/22/16 19:00 37.0 89 18 114/70 Room Air General Appearance: WELL-APPEARING, WD/WN, NO APPARENT DISTRESS Head: NORMOCEPHALIC, ATRAUMATIC Eyes: PERRLA, NO DISCHARGE, EOMI, SCLERAE NORMAL ENT: NORMAL EAR EXAM, NORMAL NASAL EXAM, NORMAL MOUTH EXAM, NORMAL THROAT EXAM , NORMAL DENTAL EXAM Neck: NORMAL RANGE OF MOTION, NO TENDERNESS, TRACHEA MIDLINE, NO STRIDOR, SUPPLE, NO THYROMEGALY Respiratory: BREATH SOUNDS NORMAL, CLEAR TO AUSCULTATION, CLEAR TO PERCUSSION, NO RESPIRATORY DISTRESS Cardiovasular: REGULAR RATE/RHYTHM, NORMAL S1S2, NO M/G/R, NO MURMUR, NO GALLOP , NO RUB, NO JVD Abdomen: NON TENDER, NORMAL BOWEL SOUNDS, NO REBOUND, NO MASSES, NO GUARDING, NO ORGANOMEGALY, NORMAL RECTAL EXAM, NO HEMORRHOIDS, NO HERNIA Genitourinary - Female: EXTERNAL GENITALIA NORMAL Back: NORMAL INSPECTION, NO MIDLINE TENDERNESS, NO CVA TENDERNESS, NO PARAVERTEBRAL TTP, NORMAL RANGE OF MOTION Upper Extremities: NO EDEMA, NO DEFORMITY, NORMAL ROM Lower Extremities: NO EDEMA, NO DEFORMITY, NORMAL ROM Pulses: carotid (R) (2+), carotid (L) (2+), radial (R) (2+), radial (L) (2+), dorsalis pedis (R) (2+), dorsalis pedis (L) (2+) Neuro: ALERT, ORIENTED x 3, NORMAL MOTOR EXAM, NORMAL SENSATION, NORMAL CEREBELLAR EXAM, NORMAL SPEECH, NORMAL GAIT Reflexes: biceps (R) (2+), bicpes (L) (2+), achilles (R) (2+), achilles (L) (2+ ) Babinski Testing: right (downgoing), left (downgoing) Psychiatric: NO SUICIDAL IDEATION Diagnostics Labs Results Past 24 Hours Test 12/22/16 22:32 12/23/16 00:00 12/23/16 10:27 Range/Units White Blood Count 7.13 4.8-10.8 K/uL Red Blood Count 3.79 4.2-5.4 M/uL Hemoglobin 10.8 12.0-16.0 g/dL Hematocrit 32.0 37-47 % Mean Corpuscular Volume 84.4 80-100 fL Mean Corpuscular Hemoglobin 28.5 25-34 pg Mean Corpuscular Hemoglobin Concent 33.8 32-36 g/dl Platelet Count 291 130-400 K/uL Mean Platelet Volume 8.9 7.4-10.4 fL Neutrophils (%) (Auto) 54.0 % Lymphocytes (%) (Auto) 29.5 % Monocytes (%) (Auto) 12.9 % Eosinophils (%) (Auto) 2.9 % Basophils (%) (Auto) 0.4 % Neutrophils # (Auto) 3.85 1.4-6.5 K/uL Lymphocytes # (Auto) 2.10 1.2-3.4 K/uL Monocytes # (Auto) 0.92 0.11-0.59 K/uL Eosinophils # (Auto) 0.21 0-0.5 K/uL Basophils # (Auto) 0.03 0-0.2 K/uL RDW Standard Deviation 39.2 36.4-46.3 fL RDW Coefficient of Variation 12.7 11.5-14.5 % Immature Granulocyte % (Auto) 0.3 % Immature Granulocyte # (Auto) 0.02 0.00-0.02 K/uL Erythrocyte Sedimentation Rate 65 0-21 mm/hr Sodium Level 141 136-145 mmol/L Potassium Level 3.8 3.5-5.1 mmol/L Chloride Level 103 98-107 mmol/L Carbon Dioxide Level 34 21-32 mmol/L Anion Gap 4.0 3-11 mmol/L Blood Urea Nitrogen 10 7-18 mg/dl Creatinine 0.59 0.60-1.20 mg/dl Est Creatinine Clear Calc Drug Dose 135.6 ml/min Estimated GFR () > 150.0 Estimated GFR (Non- 130.1 BUN/Creatinine Ratio 17.3 10-20 Random Glucose 95 70-99 mg/dl Calcium Level 8.9 8.5-10.1 mg/dl Urine Random Creatinine 110.0 mg/dl Urine Random Total Protein 16.4 0-11.9 mg/dl Urine Protein/Creatinine Ratio 0.2 0-0.2 Iron Level 25 35-150 mcg/dl Total Iron Binding Capacity 264 250-450 mcg/dl Transferrin 190 200-360 mg/dl Transferrin % Saturation 9 15-50 % Ferritin 62.3 8.0-388.0 ng/ml Microbiology Results 12/22/16 Blood Culture, Received Pending 12/22/16 Blood Culture, Received Pending Diagnostic Radiology CT thorax a 16/09/[address] thorax 12/06/2016 and personally reviewed Progression of bilateral mid to lower lung field nodule opacifications now some halo signs Possible cavitation of one of the larger lung nodules in the left lower lobe posterior subsegment EKG Interpretation: NORMAL EKG Impression Assessment and Plan 21-year-old female admitted with pleurisy and progressive abnormal CAT scan/ nodularity: #1 abnormal CAT scan: The patient has notable progression of her bilateral pulmonary nodules not just in number but also notably in size and now some showing the halo signs and possible cavitation a left lower lobe nodule. The differential diagnosis for this patient's pulmonary nodules is brought in I agree with Dr. Naylor and has to include: Vasculitic disorders, infectious etiology and carcinomas. For definitive workup I have suggested to the family they proceed forward with Dr. Hilario with [facility] and surgical lung biopsy. This would give us the most amount of material and highest diagnostic yield. Transthoracic needle aspiration is possible that his less efficient/diagnostic with dealing with vasculitic and/or infectious etiologies at times. Prior to surgical workup I will obtain a inpatient bedside spirometry, follow up on echocardiogram-if transthoracic does not rule out definitively valvular of the malleoli will suggest performing transesophageal during OR time as she is intubated, #2 pleurisy: Patient has notable pleurisy much better controlled at this time but notable consistent in the right anterior apical region. At this time I'll initiate Toradol IV every 6 for 24-hour window and further follow-up. As the patient's pain is dramatically improved will switch ibuprofen at that time. #3 workup: The patient does show signs of systemic diseases she has a low hemoglobin, protein level and on clinical history shows progressive fatigue. Believe to be more definitive we'll have to send off for a CCP which is overall and more sensitive for rheumatoid arthritis, will send for QuantiFERON Gold, patient has agreed to have HIV study performed, pre-albumin. #4 isolation: At this time the patient has not been coughing and does not have a history significant are clinically significant for tuberculosis. I will take her at isolation
--- NOTE | 2016-12-23 12:48 | Family Medicine Progress Note ---
Progress Note Date of Service Dec 23, 2016. Subjective Pt evaluation today including: conversation w/ patient, physical exam, chart review, lab review -Today the patient complains of bilateral pleuritic chest pain. -Pt says it's worse with movement and cough. -Pt denies fever, SOB Constitutional: No fever, No chills Respiratory: No cough, No sputum, No wheezing, No shortness of breath Cardiovascular: + chest pain, No orthopnea, No edema Abdomen: No pain, No nausea, No vomiting, No diarrhea Medications Current Inpatient Medications Medications (Trade) Dose Ordered Sig/Mak Route Start Time Stop Time Status Last Admin Dose Admin Ceftriaxone Sodium 1 gm/ Dextrose 50 ml @ 100 mls/hr Q24H IV 12/22/16 23:00 12/29/16 22:59 Future Hold 12/22/16 23:32 100 MLS/HR Ondansetron HCl (Zofran Inj) 4 mg Q6H PRN IV 12/22/16 22:15 01/21/17 22:14 Vancomycin HCl (Consult) 1 ea UD PRN N/A 12/22/16 22:45 01/21/17 22:44 Future Hold Tramadol HCl (Ultram Tab) 50 mg Q4H PRN PO 12/22/16 23:00 01/21/17 22:59 12/23/16 00:26 50 MG Albuterol/ Ipratropium (Duoneb) 3 ml Q4 PRN INH 12/22/16 23:00 01/21/17 22:59 Acetaminophen (Tylenol Tab) 650 mg Q4H PRN PO 12/22/16 23:00 01/21/17 22:59 Miscellaneous (Iv Fluids Completed) 1 ea PRN PRN N/A 12/22/16 23:45 12/22/17 23:44 Sodium Chloride 1,000 ml @ 125 mls/hr Q8H IV 12/23/16 06:45 01/22/17 06:44 12/23/16 10:00 125 MLS/HR Objective Vital Signs Date Time Temp Pulse Resp B/P (MAP) Pulse Ox O2 Delivery O2 Flow Rate FiO2 12/23/16 09:30 Room Air 12/23/16 08:09 36.6 76 16 93/60 (71) 99 Room Air 12/23/16 00:11 36.9 59 16 105/69 (81) 100 Room Air 12/23/16 00:00 Room Air 12/22/16 19:00 37.0 89 18 114/70 Room Air Physical Exam General Appearance: WD/WN, no apparent distress Neck: supple, no adenopathy Respiratory/Chest: lungs clear Cardiovascular: regular rate, rhythm, no edema, no gallop, no JVD, no murmur Abdomen: normal bowel sounds, non tender, soft, no organomegaly, no pulsatile mass Neurologic/Psychiatric: alert, normal mood/affect, oriented x 3 Skin: normal color, warm/dry, no rash Laboratory Results 12/22/16 22:32 Red Blood Count 3.79, Mean Corpuscular Volume 84.4, Mean Corpuscular Hemoglobin 28.5, Mean Corpuscular Hemoglobin Concent 33.8, Mean Platelet Volume 8.9, Neutrophils (%) (Auto) 54.0, Lymphocytes (%) (Auto) 29.5, Monocytes (%) (Auto) 12.9, Eosinophils (%) (Auto) 2.9, Basophils (%) (Auto) 0.4, Neutrophils # (Auto ) 3.85, Lymphocytes # (Auto) 2.10, Monocytes # (Auto) 0.92, Eosinophils # (Auto ) 0.21, Basophils # (Auto) 0.03 12/22/16 22:32 Test 12/22/16 22:32 12/23/16 00:00 12/23/16 10:27 White Blood Count 7.13 K/uL (4.8-10.8) Red Blood Count 3.79 M/uL (4.2-5.4) Hemoglobin 10.8 g/dL (12.0-16.0) Hematocrit 32.0 % (37-47) Mean Corpuscular Volume 84.4 fL (80-100) Mean Corpuscular Hemoglobin 28.5 pg (25-34) Mean Corpuscular Hemoglobin Concent 33.8 g/dl (32-36) Platelet Count 291 K/uL (130-400) Mean Platelet Volume 8.9 fL (7.4-10.4) Neutrophils (%) (Auto) 54.0 % Lymphocytes (%) (Auto) 29.5 % Monocytes (%) (Auto) 12.9 % Eosinophils (%) (Auto) 2.9 % Basophils (%) (Auto) 0.4 % Neutrophils # (Auto) 3.85 K/uL (1.4-6.5) Lymphocytes # (Auto) 2.10 K/uL (1.2-3.4) Monocytes # (Auto) 0.92 K/uL (0.11-0.59) Eosinophils # (Auto) 0.21 K/uL (0-0.5) Basophils # (Auto) 0.03 K/uL (0-0.2) RDW Standard Deviation 39.2 fL (36.4-46.3) RDW Coefficient of Variation 12.7 % (11.5-14.5) Immature Granulocyte % (Auto) 0.3 % Immature Granulocyte # (Auto) 0.02 K/uL (0.00-0.02) Erythrocyte Sedimentation Rate 65 mm/hr (0-21) Anion Gap 4.0 mmol/L (3-11) Est Creatinine Clear Calc Drug Dose 135.6 ml/min Estimated GFR () > 150.0 Estimated GFR (Non- 130.1 BUN/Creatinine Ratio 17.3 (10-20) Calcium Level 8.9 mg/dl (8.5-10.1) Urine Random Creatinine 110.0 mg/dl Urine Random Total Protein 16.4 mg/dl (0-11.9) Urine Protein/Creatinine Ratio 0.2 (0-0.2) Iron Level 25 mcg/dl (35-150) Total Iron Binding Capacity 264 mcg/dl (250-450) Transferrin 190 mg/dl (200-360) Transferrin % Saturation 9 % (15-50) Ferritin 62.3 ng/ml (8.0-388.0) Assessment and Plan 21 year old female with chest pain, shortness of breath and progressive nodular opacities on CT Chest Lung nodular opacities - differential includes infectious(bacterial/fungal/IE)/autoimmune/oncologic ( lymphoma). - Will repeat CBC, CMP and ESR. - Other labs pending from the office include FLORIDALMA reflex, DIONTE level, ANCA reflex , quantiferon, anti-GBM - HIV test pending - Lyme and RF negative - Discussed with Dr Ott. Plan for urine protein/Cr ratio, 24 hour collection of calcium. - Hold off steroids. - Thoracic surgery consulted, will perform biopsy - Pulmonology consulted, awaiting recs - ID consulted - Holding antibiotics until biopsy completed Fe deficiency Anemia -Pt Hgb is 10.8 HCT 32 -Iron studies demonstrate low Fe, low transferrin saturation -Follow CBC -Fecal occult blood ordered VTE Prophylaxis - Young age and mobile therefore will hold off chemical prophylaxis pending clinical course - ADRIANA + SCDs Code - Full Disposition - observation status Reviewed: Pt Seen/Exam by Me History no new concerns no shortness of breath at rest Constitutional: denies: fever Respiratory: negative: short of breath Cardiovascular: reports chest pain (left side and right side on the front) General Appearance: no apparent distress Respiratory: lungs clear, no respiratory distress Cardiovascular: regular rate, rhythm Neurologic/Psychiatric: alert, oriented x 3 Skin Characteristics: warm/dry Assessment/Plan Resident Physician Supervision Note: I was present with Dr. Islsa in bedside. I verified the [place] history and physical, reviewed labs and image studies, discussed the case with the resident and agree with the findings and care plan.
[2016-12-23 15:44] VITALS: BP_SYST 100; BP_SYST 90; BP_DIAS 59; BP_DIAS 65; PULSE 70; TEMP 36.7; O2SAT 98
[2016-12-23] MEDS: KETOROLAC TROMETHAMINE 15 MG/ML VIAL IV PRN (21:02)
[2016-12-23] MEDS ORDERED: AZITHROMYCIN IV 500 MG in DEXTROSE 5% 250ML 250 ML IV SCH (22:00)
[2016-12-23 23:51] VITALS: BP 93/64; PULSE 72; TEMP 36.2; O2SAT 99
[2016-12-24] MEDS: TRAMADOL HCL 50 MG TAB PO PRN ×2 (00:43→12:06)
[2016-12-24] MEDS ORDERED: VANCOMYCIN TROUGH SCH (01:30)
[2016-12-24] MEDS: SODIUM CHLORIDE 0.9% 1000ML 1,000 ML IV SCH ×3 (05:40→23:24)
[2016-12-24] MEDS: KETOROLAC TROMETHAMINE 15 MG/ML VIAL IV PRN (07:17)
[2016-12-24 07:46] VITALS: BP 112/73; PULSE 83; TEMP 36.8; O2SAT 99
[2016-12-24 07:52] LABS: BASO % 0.2 %; BASO ABS # 0.01 K/uL (0-0.2); COMPLETE YES; EOS % 3.7 %; HEMATOCRIT 29.4 % (37-47); IG% 0.2 %; LYMPH % 25.7 %; LYMPH ABS # 1.53 K/uL (1.2-3.4); MEAN CELL VOLUME 83.3 fL (80-100); MEAN CORPUSCULAR HEMOGLOBIN 28.3 pg (25-34); MEAN PLATELET VOLUME 9.2 fL (7.4-10.4); MONO % 16.3 %; NEUT % 53.9 %; PLATELET COUNT 282 K/uL (130-400); RED BLOOD COUNT 3.53 M/uL (4.2-5.4); WHITE BLOOD COUNT 5.96 K/uL (4.8-10.8)
[2016-12-24 08:29] LABS: CREATININE 0.46 mg/dl (0.60-1.20)
[2016-12-24 08:34] LABS: PREALBUMIN 8.1 mg/dl (20-40)
--- NOTE | 2016-12-24 10:53 | SURGERY PROGRESS NOTE ---
DATE: 12/24/2016 I had a long discussion with the patient this morning. I had also talked about this case with Dr. Ott last night. Dr. Ott raises a very good point that a needle biopsy may not be helpful in a patient who has vasculitis. We are going to proceed tomorrow with a thoracoscopic biopsy. We will do this on the right side and wedge out the costophrenic mass or one of the other lung masses that are peripheral. This should be relatively quick. I would suspect that the patient would be able to have her chest tube removed on the and be ready for discharge from my standpoint. We will get a frozen section tomorrow too. We talked about risks and benefits including air leak, lung injury, and bleeding. She understands. We will get all this set up tomorrow.
[2016-12-24] MEDS ORDERED: MoRPHine SULFATE 2 MG/ML CARP IV STA (13:27)
[2016-12-24] MEDS ORDERED: MoRPHine SULFATE 2 MG/ML CARP ONE (13:52)
--- NOTE | 2016-12-24 14:03 | Family Medicine Progress Note ---
Progress Note Date of Service Dec 24, 2016. Subjective Pt evaluation today including: conversation w/ patient, physical exam, chart review, lab review -Pt is feeling well today -Pleuritic chest pain is well controlled. -Pt is awaiting lung biopsy tomorrow am Constitutional: No fever, No chills Respiratory: No cough, No sputum, No wheezing, No shortness of breath, No dyspnea on exertion Cardiovascular: No chest pain, No palpitations Abdomen: No pain, No nausea, No vomiting, No diarrhea, No constipation Medications Current Inpatient Medications Medications (Trade) Dose Ordered Sig/Mak Route Start Time Stop Time Status Last Admin Dose Admin Ondansetron HCl (Zofran Inj) 4 mg Q6H PRN IV 12/22/16 22:15 01/21/17 22:14 Tramadol HCl (Ultram Tab) 50 mg Q4H PRN PO 12/22/16 23:00 01/21/17 22:59 12/24/16 12:06 50 MG Albuterol/ Ipratropium (Duoneb) 3 ml Q4 PRN INH 12/22/16 23:00 01/21/17 22:59 Acetaminophen (Tylenol Tab) 650 mg Q4H PRN PO 12/22/16 23:00 01/21/17 22:59 Miscellaneous (Iv Fluids Completed) 1 ea PRN PRN N/A 12/22/16 23:45 12/22/17 23:44 Sodium Chloride 1,000 ml @ 125 mls/hr Q8H IV 12/23/16 06:45 01/22/17 06:44 12/24/16 05:40 125 MLS/HR Ketorolac Tromethamine (Toradol Inj) 15 mg Q6H PRN IV 12/23/16 13:00 12/25/16 12:59 12/24/16 07:17 15 MG Morphine Sulfate (MoRPHine SULFATE INJ) 2 mg 4XDQ4H PRN IV 12/24/16 13:30 01/07/17 13:29 UNV Morphine Sulfate (MoRPHine SULFATE INJ) 1 mg NOW STAT IV 12/24/16 13:27 12/24/16 13:28 UNV Lidocaine (Lidoderm Patch 5%) 1 patch QAM TD 12/25/16 08:00 01/24/17 07:59 UNV Miscellaneous (Remove Lidoderm Patch) 1 ea DAILY@21 N/A 12/24/16 21:00 01/23/17 20:59 UNV Objective Vital Signs Date Time Temp Pulse Resp B/P (MAP) Pulse Ox O2 Delivery O2 Flow Rate FiO2 12/24/16 09:53 Room Air 12/24/16 07:46 36.8 83 16 112/73 (86) 99 Room Air 12/24/16 00:27 Room Air 12/23/16 23:51 36.2 72 16 93/64 (74) 99 Room Air 12/23/16 20:00 Room Air 12/23/16 16:10 Room Air 12/23/16 15:44 36.7 70 18 100/65 (77) 98 Room Air 90/59 (69) Physical Exam General Appearance: WD/WN, no apparent distress Neck: supple, no adenopathy Respiratory/Chest: chest non-tender, lungs clear, no respiratory distress, no accessory muscle use, + decreased breath sounds Cardiovascular: regular rate, rhythm, no edema, no gallop, no JVD, no murmur Neurologic/Psychiatric: alert, normal mood/affect, oriented x 3 Skin: normal color, warm/dry, no rash Laboratory Results 12/24/16 06:46 Red Blood Count 3.53, Mean Corpuscular Volume 83.3, Mean Corpuscular Hemoglobin 28.3, Mean Corpuscular Hemoglobin Concent 34.0, Mean Platelet Volume 9.2, Neutrophils (%) (Auto) 53.9, Lymphocytes (%) (Auto) 25.7, Monocytes (%) (Auto) 16.3, Eosinophils (%) (Auto) 3.7, Basophils (%) (Auto) 0.2, Neutrophils # (Auto ) 3.22, Lymphocytes # (Auto) 1.53, Monocytes # (Auto) 0.97, Eosinophils # (Auto ) 0.22, Basophils # (Auto) 0.01 12/24/16 06:46 Test 12/24/16 06:46 White Blood Count 5.96 K/uL (4.8-10.8) Red Blood Count 3.53 M/uL (4.2-5.4) Hemoglobin 10.0 g/dL (12.0-16.0) Hematocrit 29.4 % (37-47) Mean Corpuscular Volume 83.3 fL (80-100) Mean Corpuscular Hemoglobin 28.3 pg (25-34) Mean Corpuscular Hemoglobin Concent 34.0 g/dl (32-36) Platelet Count 282 K/uL (130-400) Mean Platelet Volume 9.2 fL (7.4-10.4) Neutrophils (%) (Auto) 53.9 % Lymphocytes (%) (Auto) 25.7 % Monocytes (%) (Auto) 16.3 % Eosinophils (%) (Auto) 3.7 % Basophils (%) (Auto) 0.2 % Neutrophils # (Auto) 3.22 K/uL (1.4-6.5) Lymphocytes # (Auto) 1.53 K/uL (1.2-3.4) Monocytes # (Auto) 0.97 K/uL (0.11-0.59) Eosinophils # (Auto) 0.22 K/uL (0-0.5) Basophils # (Auto) 0.01 K/uL (0-0.2) RDW Standard Deviation 38.6 fL (36.4-46.3) RDW Coefficient of Variation 12.7 % (11.5-14.5) Immature Granulocyte % (Auto) 0.2 % Immature Granulocyte # (Auto) 0.01 K/uL (0.00-0.02) Est Creatinine Clear Calc Drug Dose 173.9 ml/min Estimated GFR () > 150.0 Estimated GFR (Non- 141.2 Prealbumin 8.1 mg/dl (20-40) Cyclic Citrullinated Peptide IgG Ab < 0.40 U/mL (0-4.99) Assessment and Plan 21 year old female with chest pain, shortness of breath and progressive nodular opacities on CT Chest Lung nodular opacities - Biopsy scheduled for Sunday - Current consults: I/D, Pulmonology, Thoracic Surgery - Holding abx for biopsy - Differential includes infectious(bacterial/fungal/IE)/autoimmune/oncologic ( sarcoidosis/lymphoma). - Elevated ESR, anemic, pt has h/o UWL - HIV test pending - Lyme and RF negative - Anti-CCP test is negative - Other labs pending from the office include FLORIDALMA reflex, DIONTE level, ANCA reflex , quantiferon, anti-GBM - Discussed with Dr Ott. Plan for urine protein/Cr ratio, 24 hour collection of calcium. Fe deficiency Anemia -Pt Hgb is 10.8 HCT 32 -Iron studies demonstrate low Fe, low transferrin saturation -Follow CBC - consider oral replacement on discharge Malnutrition - Low prealbumin - to consult dietary in am VTE Prophylaxis - Young age and mobile therefore will hold off chemical prophylaxis pending clinical course - ADRIANA + SCDs Code - Full Disposition - observation status Reviewed: Pt Seen/Exam by Me History chest pain controlled earlier with medication. pain worse in the afternoon. reevaluated. Constitutional: denies: fever Respiratory: negative: short of breath Cardiovascular: reports chest pain Gastrointestinal/Abdominal: negative: abdominal pain General Appearance: no apparent distress Respiratory: lungs clear, no respiratory distress Cardiovascular: regular rate, rhythm Neurologic/Psychiatric: alert, oriented x 3 Skin Characteristics: warm/dry Assessment/Plan Resident Physician Supervision Note: I was present with Dr. Islas in bedside. I verified the [place] history and physical, reviewed labs and image studies, discussed the case with the resident and agree with the findings and care plan.
--- NOTE | 2016-12-24 14:50 | Pulmonology Progress Note ---
Pulmonary Progress Note Date of Service Dec 24, 2016. Attending Dr. Ott Subjective The patient continues to note intermittent pleurisy but currently denies fever, chills, signs or symptoms consistent with embolic phenomena Objective Patient is doing well no signs of respiratory insufficiency or distress but does note difficulty with sleeping on the right side: I/O: +931cc RR: 16-16 SaO2: 99-99 FiO2: RA HR: 83-83 RESP: Clear to auscultation anteriorly but notably rhonchorous bilaterally right greater than left in the posterior subsegments CARD: Regular rate and rhythm no murmurs rubs or gallops appreciated ABD: Positive bowel sounds soft nontender no rebound appreciated EXT: No clubbing cyanosis or edema Thoracic ultrasound: There is appropriate lung sliding at the bases no signs of pleural effusion, there is good apposition of the visceral parietal pleura as well as positive starry night suggesting pleural visceral apposition and no signs of thorax Labs: WBC: 6K H/H: 02/25 Pre-ALB: 8.1 (L) Iron: 25 Transferrin: 190 CCP: <0.40 Pending: DIONTE FLORIDALMA screen Anti-Proteinase 3 Anti-Myeloperoxidase ANCA Glomerular Base Memb Ab MICRO: Blood x2 No growth to date MEDS: 1) Toradol 2) Ultram 3) Duo-Neb Assessment & Plan 21-year-old female admitted for progressive pleurisy an abnormal CT with a low pulmonary nodules: #[address] scan: Patient has had aggressive change in her CT scan of the thorax with the last 3 weeks. She also notes increasing pleuritic pain over that time but has been well-controlled in the hospital. As we are still working this patient up at like to perform a CT of the abdomen and pelvis with IV and oral contrast for further evaluation of possible intra-abdominal/pelvic etiologies. Infection, cancer and inflammatory conditions are still possible and multiple studies are still pending. Patient is also pending for thoracoscopy with surgical lung biopsy. #2 pleurisy: Patient's pleurisy has been better controlled since her admission she is able to sleep at times without waking up in pain. She continues to have some discomfort so I did add a lidocaine patch and introduce morphine IV to her regimen. #3 ID: At this time antibiotics are being held as the patient does not meet criteria for endocarditis. Also QuantiFERON Gold is pending as well as her HIV serum studies. Data Medications: Current Inpatient Medications Medications (Trade) Dose Ordered Sig/Mak Route Start Time Stop Time Status Last Admin Dose Admin Ondansetron HCl (Zofran Inj) 4 mg Q6H PRN IV 12/22/16 22:15 01/21/17 22:14 Tramadol HCl (Ultram Tab) 50 mg Q4H PRN PO 12/22/16 23:00 01/21/17 22:59 12/24/16 12:06 50 MG Albuterol/ Ipratropium (Duoneb) 3 ml Q4 PRN INH 12/22/16 23:00 01/21/17 22:59 Acetaminophen (Tylenol Tab) 650 mg Q4H PRN PO 12/22/16 23:00 01/21/17 22:59 Miscellaneous (Iv Fluids Completed) 1 ea PRN PRN N/A 12/22/16 23:45 12/22/17 23:44 Sodium Chloride 1,000 ml @ 125 mls/hr Q8H IV 12/23/16 06:45 01/22/17 06:44 12/24/16 14:05 125 MLS/HR Ketorolac Tromethamine (Toradol Inj) 15 mg Q6H PRN IV 12/23/16 13:00 12/25/16 12:59 12/24/16 07:17 15 MG Morphine Sulfate (MoRPHine SULFATE INJ) 2 mg 4XDQ4H PRN IV 12/24/16 13:30 01/07/17 13:29 Lidocaine (Lidoderm Patch 5%) 1 patch QAM TD 12/25/16 08:00 01/24/17 07:59 Miscellaneous (Remove Lidoderm Patch) 1 ea DAILY@21 N/A 12/24/16 21:00 01/23/17 20:59 I & O: 24-Hour Column 12/25/16 08:00 Intake Total 275 ml Output Total 300 ml Balance -25 ml Vital Signs: Date Time Temp Pulse Resp B/P (MAP) Pulse Ox O2 Delivery O2 Flow Rate FiO2 12/24/16 09:53 Room Air 12/24/16 07:46 36.8 83 16 112/73 (86) 99 Room Air 12/24/16 00:27 Room Air 12/23/16 23:51 36.2 72 16 93/64 (74) 99 Room Air 12/23/16 20:00 Room Air 12/23/16 16:10 Room Air 12/23/16 15:44 36.7 70 18 100/65 (77) 98 Room Air 90/59 (69) Laboratory Results: Last 24 Hours Test 12/24/16 06:46 White Blood Count 5.96 K/uL Red Blood Count 3.53 M/uL Hemoglobin 10.0 g/dL Hematocrit 29.4 % Mean Corpuscular Volume 83.3 fL Mean Corpuscular Hemoglobin 28.3 pg Mean Corpuscular Hemoglobin Concent 34.0 g/dl Platelet Count 282 K/uL Mean Platelet Volume 9.2 fL Neutrophils (%) (Auto) 53.9 % Lymphocytes (%) (Auto) 25.7 % Monocytes (%) (Auto) 16.3 % Eosinophils (%) (Auto) 3.7 % Basophils (%) (Auto) 0.2 % Neutrophils # (Auto) 3.22 K/uL Lymphocytes # (Auto) 1.53 K/uL Monocytes # (Auto) 0.97 K/uL Eosinophils # (Auto) 0.22 K/uL Basophils # (Auto) 0.01 K/uL RDW Standard Deviation 38.6 fL RDW Coefficient of Variation 12.7 % Immature Granulocyte % (Auto) 0.2 % Immature Granulocyte # (Auto) 0.01 K/uL Creatinine 0.46 mg/dl Est Creatinine Clear Calc Drug Dose 173.9 ml/min Estimated GFR () > 150.0 Estimated GFR (Non- 141.2 Prealbumin 8.1 mg/dl Cyclic Citrullinated Peptide IgG Ab < 0.40 U/mL
[2016-12-24] MEDS: LIDODERM (LIDOCAINE) PATCH 5% TD SCH (14:59)
[2016-12-24 16:13] VITALS: BP 94/60; PULSE 80; TEMP 36.7; O2SAT 96
[2016-12-24] MEDS ORDERED: OPTIRAY 320 IV PRN (18:30)
--- NOTE | 2016-12-24 18:49 | DIAGNOSTIC IMAGING REPORT ---
ABD/PELVIS IV AND ORAL CONT HISTORY: 21 years-old Female workup for metastatic cancer . This is a follow-up exam to further evaluate ill-defined nodular opacities of the lung bases to assess for possible metastatic disease or adenopathy. COMPARISON: CT chest 12/22/2016, CTA chest 12/06/2016 TECHNIQUE: Multiple axial CT images of the abdomen and pelvis were obtained following the administration of 115 mL Optiray 320. Oral contrast also used. A dose lowering technique was used consistent with the principals of SHY. FINDINGS: Multifocal bibasilar peripheral predominant consolidative opacities with peripheral groundglass attenuation are again seen, only partially imaged. Trace bilateral pleural effusions are noted. There is no pneumoperitoneum. The inferior cardiac chambers are unremarkable. There is mild periportal edema without focal hepatic mass or abnormality. Gallbladder is contracted. Spleen, pancreas and adrenal glands are unremarkable. There is mildly decreased attenuation of the cortex of the interpolar right kidney with otherwise unremarkable appearance of the kidneys. Ureters and urinary bladder are unremarkable. Uterus and right adnexum are unremarkable. 3.3 x 2.3 cm cystic lesion of the left adnexum suggests ovarian cyst. Mild amount of free pelvic fluid is likely physiologic. The abdominal aorta is normal in both course and caliber. No bulky retroperitoneal adenopathy is identified. Mildly prominent gastrohepatic lymph nodes are seen, 1.4 x 1.2 cm are nonspecific. There is no bowel obstruction. Moderate volume of formed stool is seen throughout the colon. The appendix appears noninflamed. Soft tissues are unremarkable. Bones appear intact without suspicious sclerotic or lucent lesions. IMPRESSION: 1. No evidence of metastatic disease within the abdomen or pelvis. 2. Only mild gastrohepatic adenopathy is seen which is nonspecific and may be reactive. No bulky retroperitoneal adenopathy is identified to suggest lymphoproliferative disorder. 3. Partially imaged multifocal bilateral masslike opacities of the lung bases with trace pleural effusions are only partially imaged. Please refer to comparison chest CT 12/22/2016 for further details. 4. Slightly decreased attenuation of the lateral cortex involving the interpolar right kidney is thought to be artifactual. Subtle pyelonephritis could have a similar appearance. Correlate with urinalysis. 5. Cyst of the left ovary is seen with likely physiologic free pelvic fluid. The above report was generated using voice recognition software. It may contain grammatical, syntax or spelling errors. Electronically signed by: Justin Ramirez M.D. 12/24/2016 6:47 PM Dictated Date/Time: 12/24/2016 6:32 PM
[2016-12-24] MEDS: MoRPHine SULFATE 2 MG/ML CARP IV PRN (20:44)
[2016-12-25] VITALS (8 sets, daily range): BP systolic 103–136; BP diastolic 66–87; PULSE 69–80; TEMP 36.3–37.2; O2SAT 97–100
[2016-12-25 02:40] LABS: CALCIUM URINE < 5.0 mg/dl; URINE COLLECTION TIME 24 HOURS
[2016-12-25] MEDS: MoRPHine SULFATE 2 MG/ML CARP IV PRN (06:01)
[2016-12-25] MEDS: SODIUM CHLORIDE 0.9% 1000ML 1,000 ML IV SCH ×3 (06:41→22:45)
[2016-12-25 06:59] LABS: CREATININE 0.47 mg/dl (0.60-1.20)
[2016-12-25] MEDS: LIDODERM (LIDOCAINE) PATCH 5% TD SCH (08:00)
--- NOTE | 2016-12-25 08:47 | History & Physical Bridge Note ---
H&P Re-Evaluation Bridge Note: I have examined the patient, reviewed the History & Physical and in the interval since the performance of the History & Physical I have noted the following changes of clinical significance: No changes noted
--- NOTE | 2016-12-25 09:08 | Progress Note ---
Subjective Date of Service: Dec 25, 2016. Subjective remains afebrile, hemodynamically stable. no overnight events. abx held pending biopsy. blood cultures from 12/21, 12/22 negative to date. TTE negative. underwent ct abd/pelvis yesterday, min abd nonspecific adenopathy found, otherwise unremarkable with the exception of lower lobe nodules already seen on previous chest ct. HIV, IGRA pending. wbc remains nml. No overnight events. Problem List Medical Problems: (1) Costochondritis Status: Acute Objective Vital Signs Date Time Temp Pulse Resp B/P (MAP) Pulse Ox O2 Delivery O2 Flow Rate FiO2 12/25/16 08:51 Room Air 12/25/16 08:00 36.8 72 16 120/78 (92) 97 Room Air 12/25/16 00:03 36.9 73 20 112/71 (85) 99 Room Air 12/24/16 23:59 Room Air 12/24/16 20:00 Room Air 12/24/16 16:13 36.7 80 18 94/60 (71) 96 Room Air 12/24/16 15:05 Room Air 12/24/16 09:53 Room Air Laboratory Results Last 24 Hours Test 12/25/16 00:42 12/25/16 06:08 Urine Collection Time 24 HOURS Urine Total Volume 3000 mL Urine Calcium mg% < 5.0 mg/dl Urine Calcium 24 Hour < 150.0 mg/24 HR Creatinine 0.47 mg/dl Est Creatinine Clear Calc Drug Dose 170.2 ml/min Estimated GFR () > 150.0 Estimated GFR (Non- 140.2 Assessment and Plan (1) Lung nodules Assessment & Plan: uncertain etiology, biopsy pending, please send specimen for routine, fungal, afb, pathology. HIV, IGRA pending, follow results. all blood cultures remain negative. remains afebrile. Follow biopsy results. consider DIONTE level as well although atypical for sarcoid
--- NOTE | 2016-12-25 12:00 | Cardiology Consultation ---
Cardiology Consultation Date of Consultation: Dec 25, 2016. Requesting Physician: Dr. 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 She was seen at an urgent care center and subsequently in the emergency room on December 06, a CT scan that time was negative for pulmonary emboli but showed ill-defined nodular opacities. Her symptoms progressed and she developed right sided chest discomfort, also pleuritic. She does have some dyspnea on exertion but is not short of breath at rest. She was seen by pulmonology as an outpatient and a second CT scan showed progression of the opacities. She was then admitted for evaluation on 12/22/2016. So far blood cultures have been negative and no clear cause for the abnormalities has been identified. She has not been febrile and has not had a leukocytosis. It is however felt possible that these are septic emboli. She does not have a history of intravenous drug abuse. She does not have a significant travel history. Past Medical/Surgical History (1) Lung nodules Social History Smoking Status: Current Every Day Smoker History of Alcohol Use: Yes (OCCAsional wine) Review of Systems Constitutional: No fever, No weight loss, No weakness Respiratory: + see HPI, + dyspnea on exertion, No cough, No sputum, No wheezing , No shortness of breath Cardiac: + see HPI, + chest pain, No palpitations Abdomen: No pain, No nausea, No vomiting, No diarrhea, No GI bleeding Female : No problem reported Neurologic: No paralysis, No weakness, No numbness/tingling, No balance problems Heme: No abnormal bleeding/bruising, No clotting problems Endo: No fatigue Skin: No problem reported All Other Systems: Reviewed and Negative Allergies Coded Allergies: Penicillins (Verified Adverse Reaction, Intermediate, VOMITTING, 12/24/16) Medications Current Inpatient Medications Medications (Trade) Dose Ordered Sig/Mak Route Start Time Stop Time Status Last Admin Dose Admin Ondansetron HCl (Zofran Inj) 4 mg Q6H PRN IV 12/22/16 22:15 01/21/17 22:14 Tramadol HCl (Ultram Tab) 50 mg Q4H PRN PO 12/22/16 23:00 01/21/17 22:59 12/24/16 12:06 50 MG Albuterol/ Ipratropium (Duoneb) 3 ml Q4 PRN INH 12/22/16 23:00 01/21/17 22:59 Acetaminophen (Tylenol Tab) 650 mg Q4H PRN PO 12/22/16 23:00 01/21/17 22:59 Miscellaneous (Iv Fluids Completed) 1 ea PRN PRN N/A 12/22/16 23:45 12/22/17 23:44 Sodium Chloride 1,000 ml @ 125 mls/hr Q8H IV 12/23/16 06:45 01/22/17 06:44 12/25/16 06:41 125 MLS/HR Ketorolac Tromethamine (Toradol Inj) 15 mg Q6H PRN IV 12/23/16 13:00 12/25/16 12:59 12/24/16 07:17 15 MG Morphine Sulfate (MoRPHine SULFATE INJ) 2 mg 4XDQ4H PRN IV 12/24/16 13:30 01/07/17 13:29 12/25/16 06:01 2 MG Lidocaine (Lidoderm Patch 5%) 1 patch QAM TD 12/25/16 08:00 01/24/17 07:59 12/24/16 14:59 1 PATCH Miscellaneous (Remove Lidoderm Patch) 1 ea DAILY@21 N/A 12/24/16 21:00 01/23/17 20:59 12/25/16 00:42 1 EA Ioversol (Optiray 320) 115 ml UD PRN IV 12/24/16 18:30 12/28/16 18:29 Physical Exam Vital Signs Past 12 Hours Date Time Temp Pulse Resp B/P (MAP) Pulse Ox O2 Delivery O2 Flow Rate FiO2 12/25/16 08:51 Room Air 12/25/16 08:00 36.8 72 16 120/78 (92) 97 Room Air 12/25/16 00:03 36.9 73 20 112/71 (85) 99 Room Air 12/24/16 23:59 Room Air Constitutional: General Apperance: heathly-appearing Level of Distress: NAD Psychiatric: Mental Status: active & alert Head: normocephalic Eyes: EOM: EOMI ENMT: normal ENT inspection, hearing grossly normal Neck: supple, no masses Lungs: Respiratory effort: no dyspnea, good air movement Auscultation: breath sounds normal, no wheezing Cardiovascular: Heart Auscultation: RRR, no murmurs, no rubs, no gallops Peripheral Pulses: Bruits: none appreciated Abdomen: Bowel Sounds: normal Inspection & Palpation: soft, no tenderness, guarding & rebound, no masses Musculoskeletal: normal strength (5/5 throughout) Extremities: no edema Neurologic: Cranial Nerves: grossly intact Sensation: grossly intact Data Laboratory Results: Last 24 Hours Test 12/25/16 00:42 12/25/16 06:08 12/25/16 11:17 Urine Collection Time 24 HOURS Urine Total Volume 3000 mL Urine Calcium mg% < 5.0 mg/dl Urine Calcium 24 Hour < 150.0 mg/24 HR Creatinine 0.47 mg/dl Est Creatinine Clear Calc Drug Dose 170.2 ml/min Estimated GFR () > 150.0 Estimated GFR (Non- 140.2 Imaging: Transthoracic echocardiography on 12/21/[address] imaging results reviewed EKG: An electrocardiogram this admission demonstrates sinus rhythm and is normal. Assessment & Plan #1. Pulmonary nodules: The cause is as yet undefined, she does not have much to suggest endocarditis nor does she have an obvious reason to have it. It is possible, however it seems unlikely. My recommendations would be to proceed with the biopsy today, if that is unrevealing we can consider transesophageal echocardiography or if the biopsy shows evidence of septic emboli then that probably would be an indication to proceed with DUANE. We should have some preliminary results later today and can make a decision. I did briefly review DUANE with her and her family but will discuss it more detail if we are going to do it. We could do it tomorrow if indicated. Thank you for allowing me to participate in her care.
[2016-12-25 13:09] LABS: URINE APPEARANCE CLEAR (CLEAR); URINE BILIRUBIN NEG (NEG); URINE COLOR YELLOW; URINE NITRITE NEG (NEG); URINE PH 7.5 (4.5-7.5); URINE SPECIFIC GRAVITY 1.008 (1.000-1.030); UROBILINOGEN NEG (NEG)
[2016-12-25 13:10] LABS: PREG INTERNAL NEGATIVE QC NEG CLEAR BACKGROUND; PREG INTERNAL POSITIVE QC POS CONTROL LINE
[2016-12-25 13:23] LABS: MANUAL MICROSCOPIC REQUIRED? NO; REVIEW REQ? NO
--- NOTE | 2016-12-25 14:12 | Family Medicine Progress Note ---
Progress Note Date of Service Dec 25, 2016. Subjective Pt evaluation today including: conversation w/ patient, physical exam, chart review, lab review Pain: 2/10 post morphine Voiding: no voiding problems Patient reports 2/10 chest pain with movement 2.5hrs post morphine pain medication. Otherwise denies having OBRIEN/dizziness, sob, n/v, abd pain and dysuria. Constitutional: No fever Respiratory: No shortness of breath Cardiovascular: + chest pain Abdomen: No pain, No nausea Female : No dysuria Medications Current Inpatient Medications Medications (Trade) Dose Ordered Sig/Mak Route Start Time Stop Time Status Last Admin Dose Admin Ondansetron HCl (Zofran Inj) 4 mg Q6H PRN IV 12/22/16 22:15 01/21/17 22:14 Tramadol HCl (Ultram Tab) 50 mg Q4H PRN PO 12/22/16 23:00 01/21/17 22:59 12/24/16 12:06 50 MG Albuterol/ Ipratropium (Duoneb) 3 ml Q4 PRN INH 12/22/16 23:00 01/21/17 22:59 Acetaminophen (Tylenol Tab) 650 mg Q4H PRN PO 12/22/16 23:00 01/21/17 22:59 Miscellaneous (Iv Fluids Completed) 1 ea PRN PRN N/A 12/22/16 23:45 12/22/17 23:44 Sodium Chloride 1,000 ml @ 125 mls/hr Q8H IV 12/23/16 06:45 01/22/17 06:44 12/25/16 06:41 125 MLS/HR Morphine Sulfate (MoRPHine SULFATE INJ) 2 mg 4XDQ4H PRN IV 12/24/16 13:30 01/07/17 13:29 12/25/16 06:01 2 MG Lidocaine (Lidoderm Patch 5%) 1 patch QAM TD 12/25/16 08:00 01/24/17 07:59 12/24/16 14:59 1 PATCH Miscellaneous (Remove Lidoderm Patch) 1 ea DAILY@21 N/A 12/24/16 21:00 01/23/17 20:59 12/25/16 00:42 1 EA Ioversol (Optiray 320) 115 ml UD PRN IV 12/24/16 18:30 12/28/16 18:29 Resident Involvement: Resident Care Provided Care Provided: Adult [facility] Medicine Objective Vital Signs Date Time Temp Pulse Resp B/P (MAP) Pulse Ox O2 Delivery O2 Flow Rate FiO2 12/25/16 08:51 Room Air 12/25/16 08:00 36.8 72 16 120/78 (92) 97 Room Air 12/25/16 00:03 36.9 73 20 112/71 (85) 99 Room Air 12/24/16 23:59 Room Air 12/24/16 20:00 Room Air 12/24/16 16:13 36.7 80 18 94/60 (71) 96 Room Air 12/24/16 15:05 Room Air Physical Exam General Appearance: no apparent distress Eyes: normal inspection Respiratory/Chest: lungs clear, normal breath sounds, no respiratory distress Cardiovascular: regular rate, rhythm, no edema Abdomen: normal bowel sounds, non tender, soft Extremities: non-tender, no pedal edema Neurologic/Psychiatric: alert Skin: warm/dry Laboratory Results Last Resulted 12/24/16 06:46 Red Blood Count 3.53, Mean Corpuscular Volume 83.3, Mean Corpuscular Hemoglobin 28.3, Mean Corpuscular Hemoglobin Concent 34.0, Mean Platelet Volume 9.2, Neutrophils (%) (Auto) 53.9, Lymphocytes (%) (Auto) 25.7, Monocytes (%) (Auto) 16.3, Eosinophils (%) (Auto) 3.7, Basophils (%) (Auto) 0.2, Neutrophils # (Auto ) 3.22, Lymphocytes # (Auto) 1.53, Monocytes # (Auto) 0.97, Eosinophils # (Auto ) 0.22, Basophils # (Auto) 0.01 Last Resulted 12/22/16 22:32 12/25/16 06:08 Assessment and Plan 21 year old female with continued chest pain exacerbated by movement and progressive nodular opacities on CT Chest pending further diagnostic work up. Lung nodular opacities - Biopsy scheduled for today with thoracic surgery - Current consults: I/D, Pulmonology, Thoracic Surgery - Not currently on abx: ID does not recommend but pulm recommends for possible atypical pneumonia - will hold off pending further work up and labs for mycoplasma and Legionella - Differential includes infectious(bacterial/fungal/IE), autoimmune/oncologic ( sarcoidosis/lymphoma), molar , atypical pneumonia, metastatic ovarian carcinoma - Elevated ESR, anemic - Lyme and RF neg - Anti-CCP test is neg - Serum Hcg <1 and UPreg neg - HIV test pending -TB quantiferon pending - Other labs pending from the office include, DIONTE level, FLORIDALMA reflex, ANCA reflex , anti-GBM - Dr. Ott ordered 24 hour collection of calcium - wnl <150 in 24 hours and Urine Ca < 5% - Cards consulted to consider DUANE given nl TTE to r/ot possible septic emboli - recommending holding off until we have biopsy results suggesting possible septic emboli as currently unlikely based on available evidence CT finding L ovarian cyst - Pelvic US pending to r/ot possible ovarian cancer given CT finding of small ovarian cyst and pulmonary nodules (possible lung metastasis) Anemia of chronic disease vs. iron deficiency: likely anemia of chronic disease given acute onset -Pt Hgb is 10 HCT 29.4 -Iron studies demonstrate low Fe, low transferrin saturation, nl TIBC and >80 RDW -Follow CBC and hold off on supplementation VTE Prophylaxis - Young age and mobile therefore will hold off chemical prophylaxis pending clinical course - ADRIANA + SCDs Code - Full Disposition - pending diagnostic and procedural work up Continued [facility] stay due to: other (pending work up ) Reviewed: Pt Seen/Exam by Me History Resident Physician Supervision Note: I interviewed and examined the patient. Discussed with and agree with findings and plan as documented in the note. Any exceptions or clarifications are listed here: This patient is a 21 year old female with worsening pleuritic bilateral chest pain and progressive nodular opacities on CT Chest who was admitted to expedite workup and for control of her pleuritic chest pain. Had a long discussion today with her primary outpatient scribing machine operator, Dr. Naylor, who inquired about whether she would have a DUANE or not, as well as some abnormalities seen and reviewed on CT abdomen to include cortical thinning in the kidney with some hypodense lesions, and heterogenous uterus. Patient reports that she stopped taking her control pills about 6 weeks ago and had one period since then which started about 2 and half weeks ago. She has a history of metrorrhagia. She is sexually active with her boyfriend and is not using condoms. She remains afebrile with no signs of sepsis or bacteremia. She reports the pain is controlled with morphine at this point. No acute distress, alert awake oriented 3 Anicteric sclera, oropharynx is clear Regular rate and rhythm, 1/6 systolic ejection murmur Lungs with fine crackles at the bases, otherwise clear Abdomen positive bowel sounds nontender nondistended, soft Extremities no edema, no joint effusions or tenderness Skin no rashes Lung nodular opacities For wedge biopsy today with thoracic surgery, depending on what is seen initially, she may end up needing a DUANE to rule out septic emboli. But that is less likely. We'll continue to hold off on starting antibiotics for now until more information is gained on the biopsy today. CT finding L ovarian cyst -we'll check pelvic ultrasound but is likely a physiologic cyst Abnormal appearing kidneys on CT abdomen-not read by the radiologist this way, but I do agree with Dr. Naylor that they look atypical. We'll check a urinalysis and urine culture to rule out infection and hematuria. But could be related to the pulmonary process Anemia-normocytic, iron studies consistent with anemia of chronic disease.-She states this is lifelong but did also used to have metrorrhagia, however has a family history of anemia in her mom and sister. I suspect that this is a thalassemia with possible superimposed anemia of chronic disease, perhaps a chronic autoimmune process causing inflammation -Follow CBC Documented By: Justine Anthony
[2016-12-25] MEDS ORDERED: BUPIVACAINE LIPOSOME 1/3% 266 MG/20 ML VIAL INFIL ONE (14:29)
[2016-12-25] MEDS ORDERED: SODIUM CHLORIDE 0.9% PF 50 ML VIAL ONE (14:29)
[2016-12-25] MEDS ORDERED: ONDANSETRON INJ 2 MG/ML 2 ML VIAL IV PRN ×2 (14:45→17:00)
[2016-12-25] MEDS ORDERED: EpHEDrine SULFATE INJ 50 MG/ML AMP IV PRN (14:45)
[2016-12-25] MEDS ORDERED: ATROPINE SULFATE 0.1 MG/ML 5ML SYR IV PRN (14:45)
[2016-12-25] MEDS ORDERED: MIDAZOLAM HCL 1 MG/ML 2ML VIAL IV ONE (15:18)
[2016-12-25] MEDS ORDERED: FENTANYL CITRATE INJ 50 MCG/1 ML 2 ML VIAL IV ONE (15:18)
[2016-12-25] MEDS ORDERED: MIDAZOLAM HCL 1 MG/ML 2ML VIAL ONE (15:43)
[2016-12-25] MEDS ORDERED: PROPOFOL IV EMULSION 10 MG/ML 20 ML VIAL IV ONE (16:22)
[2016-12-25] MEDS ORDERED: ONDANSETRON INJ 2 MG/ML 2 ML VIAL IV ONE (16:22)
[2016-12-25] MEDS ORDERED: ROCURONIUM BROMIDE 10 MG/ML 5 ML VIAL IV ONE (16:22)
[2016-12-25] MEDS ORDERED: DEXAMETHASONE SOD INJ 4 MG/ML VIAL IV ONE (16:22)
[2016-12-25] MEDS ORDERED: CLINDAMYCIN PHOS 150 MG/ML 2 ML VIAL IV ONE (16:24)
[2016-12-25] MEDS ORDERED: NEOSTIGMINE METHYLSULFATE 5 MG/5 ML SYR IV ONE (16:24)
[2016-12-25] MEDS ORDERED: GLYCOPYRROLATE INJ 0.2 MG/ML VIAL IV ONE (16:49)
[2016-12-25] MEDS ORDERED: PHENYLEPHRINE 100MCG/ML 5ML SYR IV ONE (17:16)
[2016-12-25] MEDS: FENTANYL CITRATE INJ 50 MCG/1 ML 2 ML VIAL IV PRN ×4 (17:25→19:00)
--- NOTE | 2016-12-25 17:31 | DIAGNOSTIC IMAGING REPORT ---
CHEST ONE VIEW PORTABLE CLINICAL HISTORY: Right] resection. COMPARISON STUDY: Chest CT December 17. FINDINGS: A right chest tube is in place. No pneumothorax is identified. Lower lobe predominant nodular airspace opacities are noted. Cardiomediastinal silhouette is stable. There is no evidence of pulmonary edema. IMPRESSION: 1. Right chest tube in place. No pneumothorax. 2. Redemonstration of lower lung predominant nodular airspace opacities, better depicted on prior chest CT. Electronically signed by: Sloan Slater M.D. 12/25/2016 5:30 PM Dictated Date/Time: 12/25/2016 5:29 PM
--- NOTE | 2016-12-25 18:57 | Anesthesiology Progress Note ---
Anesthesia Post Op Note Date & Time Dec 25, 2016 at 18:57 Vital Signs Pain Intensity: 3 Vital Signs Past 12 Hours Date Time Temp Pulse Resp B/P (MAP) Pulse Ox O2 Delivery O2 Flow Rate FiO2 12/25/16 18:45 73 11 117/76 99 Room Air 12/25/16 18:30 70 13 126/82 100 Room Air 12/25/16 18:15 80 20 129/73 99 Room Air 12/25/16 18:00 36.6 72 20 126/86 100 Room Air 12/25/16 17:55 87 20 138/87 100 Room Air 12/25/16 17:45 69 16 135/84 99 Nasal Cannula 2 12/25/16 17:35 71 12 119/80 100 Nasal Cannula 2 12/25/16 17:25 83 24 120/86 99 Oxymask 10 12/25/16 17:15 91 24 130/83 100 Oxymask 10 12/25/16 17:07 36.0 96 20 134/85 96 Oxymask 10 12/25/16 08:51 Room Air 12/25/16 08:00 36.8 72 16 120/78 (92) 97 Room Air Notes Mental Status: alert / awake / arousable, participated in evaluation Pt Amnestic to Procedure: Yes Nausea / Vomiting: adequately controlled Pain: adequately controlled Airway Patency, RR, SpO2: stable & adequate BP & HR: stable & adequate Hydration State: stable & adequate Anesthetic Complications: no major complications apparent
[2016-12-25] MEDS: ACETAMINOPHEN IV 100 ML IV SCH (20:41)
[2016-12-25] MEDS: KETOROLAC TROMETHAMINE 15 MG/ML VIAL IV. SCH (20:43)
[2016-12-25] MEDS: DOCUSATE SODIUM 100 MG CAP PO SCH (20:49)
[2016-12-25] MEDS: OXYCODONE HCL IR 5 MG TAB (IMMEDIATE RELEASE) PO PRN (21:50)
[2016-12-25] MEDS: CLINDAMYCIN IV 900 MG in DEXTROSE 5% 100ML 100 ML IV SCH (22:46)
--- NOTE | 2016-12-25 23:07 | OPERATIVE REPORT ---
DATE OF OPERATION: 12/25/2016 PROCEDURE: Right thoracoscopy with wedge biopsy of right middle lobe and right lower lobe nodules. PREOPERATIVE DIAGNOSIS: Bilateral lower lobe lung nodules. POSTOPERATIVE DIAGNOSIS: Apparent granulomatous disease with pulmonary involvement. SURGEON: Dr. Plunkett. COLD ROLLING COORDINATOR: PACO Oconnor. ANESTHESIA: General anesthesia with single lumen intubation. SPECIFICS OF PROCEDURE AND FINDINGS: A 21-year-old who presented with some pleuritic chest pain, first on the left side, then on the right. Really did not have much in the way systemic symptoms, although she was a bit anemic. I discussed this in detail over the weekend several times with Dr. Ott and Dr. Naylor, and we elected to proceed with a biopsy. On 12/25/2016, the patient underwent uncomplicated biopsy: I used two 5 mm ports and a single 12 mm port and wedged out a right lower lobe and right middle lobe mass. The right lower lobe mass was sent for frozen section. There were some mild adhesions, which were easily broken up between the lung and the chest wall. These nodules were interesting in appearance. The cytology and frozen section showed granulomas. Dr. Burleson did not feel a neoplasm was present. At any rate, at this point we elected to close. 266 mg of Exparel was mixed in a total of 60 mL of normal saline, injected from the 2nd to the 11th rib intrathoracically to perform an intercostal block. A 24-[place] chest tube was placed in the right lower thoracoscopy port. 4-0 Monocryl was used to close two 5 mm incisions and 4-0 Monocryl was used in running subcuticular fashion to close the chest tube site around the chest tube. The chest tube was held in place with heavy silk suture. The patient had no blood loss. She tolerated it well, was awakened without difficulty in the operating room. I attest to the content of the Intraoperative Record and any orders documented therein. Any exception s are noted below.
[2016-12-26] MEDS: MoRPHine SULFATE 2 MG/ML CARP IV PRN ×3 (00:44→09:09)
[2016-12-26] MEDS: ACETAMINOPHEN IV 100 ML IV SCH ×3 (02:19→18:47)
[2016-12-26 03:01] VITALS: BP 96/58; PULSE 56; TEMP 36.5; O2SAT 99
[2016-12-26] MEDS: KETOROLAC TROMETHAMINE 15 MG/ML VIAL IV. SCH ×2 (04:23→12:23)
[2016-12-26] MEDS: CLINDAMYCIN IV 900 MG in DEXTROSE 5% 100ML 100 ML IV SCH (04:23)
[2016-12-26] MEDS: SODIUM CHLORIDE 0.9% 1000ML 1,000 ML IV SCH (06:23)
[2016-12-26] MEDS: OXYCODONE HCL IR 5 MG TAB (IMMEDIATE RELEASE) PO PRN ×2 (06:26→14:51)
--- NOTE | 2016-12-26 07:15 | DIAGNOSTIC IMAGING REPORT ---
PELVIC ULTRASOUND, TRANSABDOMINAL AND TRANSVAGINAL HISTORY: left ovarian cyst, multiple pulmonary nodules COMPARISON: Abdomen and pelvis CT 12/24/2016. FINDINGS: Uterus: Unremarkable. Endometrial stripe: 3 mm. Right ovary: Normal in size and demonstrates normal color flow. Left ovary: Normal in size and demonstrates normal color flow. Miscellaneous:Small amount of pelvic fluid. IMPRESSION: Small amount of pelvic fluid. Otherwise, normal uterus and ovaries. Electronically signed by: Valentino Paz M.D. 12/26/2016 7:14 AM Dictated Date/Time: 12/26/2016 7:12 AM
[2016-12-26 07:42] VITALS: BP 119/67; PULSE 56; TEMP 36.7; O2SAT 99
[2016-12-26] MEDS ORDERED: ENOXAPARIN 40 MG/0.4 ML SYR SQ SCH (08:00)
--- NOTE | 2016-12-26 08:22 | DIAGNOSTIC IMAGING REPORT ---
CHEST ONE VIEW PORTABLE CLINICAL HISTORY: 21 years-old Female presenting with s/p wedge resection. TECHNIQUE: Portable upright AP view of the chest was obtained. COMPARISON: 12/25/2016 5:21 PM. FINDINGS: Right large bore pleural drain terminates in the lateral mid right hemithorax. Multifocal nodular opacities with a basilar predominance bilaterally are better appreciated on most recent CT from 12/22/2016. Subtle opacities noted at the lung bases. No pneumothorax or pleural effusion.Osseous structures normal. Upper abdomen normal. IMPRESSION: 1. Multifocal nodular opacities better appreciated on most recent CT from 12/22/2016. The distribution could be seen in the setting of an infectious process, neoplasm, or vasculitis/granulomatosis with polyangiitis among other etiologies. 2. No pneumothorax. Electronically signed by: Fidel Cheng M.D. 12/26/2016 8:21 AM Dictated Date/Time: 12/26/2016 8:16 AM
[2016-12-26] MEDS ORDERED: NAPROXEN 250 MG TAB PO SCH (09:00)
[2016-12-26] MEDS: DOCUSATE SODIUM 100 MG CAP PO SCH (09:14)
[2016-12-26 12:15] VITALS: BP 112/70; PULSE 62; TEMP 36.8; O2SAT 97
--- NOTE | 2016-12-26 12:35 | Family Medicine Progress Note ---
Progress Note Date of Service Dec 26, 2016. Subjective Pt evaluation today including: conversation w/ patient, physical exam, chart review, lab review Pain: reports pain at site of chest tube worse with movement PO Intake: tolerating Voiding: no voiding problems This AM pt reports pain at site of chest tube worse with movement but denies pleuritic chest pain. Also reports sob. Otherwise denies OBRIEN/dizz, abd pn, n/v. Constitutional: No fever Respiratory: + shortness of breath Cardiovascular: + chest pain Abdomen: No pain, No nausea, No vomiting Female : No dysuria Medications Current Inpatient Medications Medications (Trade) Dose Ordered Sig/Mak Route Start Time Stop Time Status Last Admin Dose Admin Albuterol/ Ipratropium (Duoneb) 3 ml Q4 PRN INH 12/22/16 23:00 01/21/17 22:59 Acetaminophen (Tylenol Tab) 650 mg Q4H PRN PO 12/22/16 23:00 01/21/17 22:59 Ondansetron HCl (Zofran Inj) 4 mg Q4H PRN IV 12/25/16 17:00 01/24/17 16:59 Docusate Sodium (coLACE CAP) 100 mg BID PO 12/25/16 20:00 01/24/17 19:59 12/26/16 09:14 100 MG Ketorolac Tromethamine (Toradol Inj) 15 mg Q8H IV. 12/25/16 20:00 12/27/16 12:01 12/26/16 04:23 15 MG Morphine Sulfate (MoRPHine SULFATE INJ) Q1H PRN IV 12/25/16 17:00 01/08/17 16:59 12/26/16 09:09 2 MG Oxycodone HCl (Roxicodone Immediate Rel Tab) 5 mg Q6H PRN PO 12/25/16 17:00 01/08/17 16:59 12/26/16 06:26 5 MG Acetaminophen 100 ml @ 400 mls/hr Q8H IV 12/25/16 18:00 01/24/17 16:59 12/26/16 11:00 400 MLS/HR Enoxaparin Sodium (Lovenox Inj) 40 mg QAM SQ 12/26/16 08:00 01/25/17 07:59 12/26/16 10:45 40 MG Naproxen (Naprosyn Tab) 500 mg BID PO 12/26/16 09:00 01/25/17 08:59 12/26/16 10:47 500 MG Objective Vital Signs Date Time Temp Pulse Resp B/P (MAP) Pulse Ox O2 Delivery O2 Flow Rate FiO2 12/26/16 07:42 36.7 56 15 119/67 (84) 99 Room Air 12/26/16 03:01 36.5 56 14 96/58 (71) 99 Room Air 12/26/16 01:00 Room Air 12/25/16 23:16 36.7 76 14 103/66 (78) 97 Room Air 12/25/16 22:50 36.9 77 18 104/67 (79) 100 Room Air 12/25/16 21:44 36.8 80 18 114/72 (86) 100 Room Air 12/25/16 20:55 36.3 73 18 123/80 (94) 100 Room Air 12/25/16 20:22 37.2 72 18 127/87 (100) 100 Room Air 12/25/16 20:00 Room Air 12/25/16 19:58 Room Air 12/25/16 19:45 36.7 69 18 136/77 (96) 100 Room Air 12/25/16 19:15 68 20 127/75 97 Room Air 12/25/16 19:00 67 20 123/81 100 Room Air 12/25/16 18:45 73 11 117/76 99 Room Air 12/25/16 18:30 70 13 126/82 100 Room Air 12/25/16 18:15 80 20 129/73 99 Room Air 12/25/16 18:00 36.6 72 20 126/86 100 Room Air 12/25/16 17:55 87 20 138/87 100 Room Air 12/25/16 17:45 69 16 135/84 99 Nasal Cannula 2 12/25/16 17:35 71 12 119/80 100 Nasal Cannula 2 12/25/16 17:25 83 24 120/86 99 Oxymask 10 12/25/16 17:15 91 24 130/83 100 Oxymask 10 12/25/16 17:07 36.0 96 20 134/85 96 Oxymask 10 Physical Exam General Appearance: + mild distress Respiratory/Chest: normal breath sounds, no respiratory distress, + crackles ( R sided crackles), + pertinent finding (chest tube drained about 200mls of serosanguinous fluid) Cardiovascular: regular rate, rhythm Abdomen: normal bowel sounds, non tender, soft Extremities: non-tender, no pedal edema Neurologic/Psychiatric: alert, oriented x 3 Laboratory Results 12/26/16 07:11 Test 12/25/16 12:45 12/26/16 07:11 Urine Color YELLOW Urine Appearance CLEAR (CLEAR) Urine pH 7.5 (4.5-7.5) Urine Specific [place] 1.008 (1.000-1.030) Urine Protein NEG (NEG) Urine Glucose (UA) NEG (NEG) Urine Ketones NEG (NEG) Urine Occult Blood NEG (NEG) Urine Nitrite NEG (NEG) Urine Bilirubin NEG (NEG) Urine Urobilinogen NEG (NEG) Urine Leukocyte Esterase NEG (NEG) Urine Test NEG (NEG) Est Creatinine Clear Calc Drug Dose 160.0 ml/min Estimated GFR () > 150.0 Estimated GFR (Non- 137.4 Assessment and Plan 21 year old female admitted for expedited work up and control of pleuritic chest pain and progressive nodular opacities on CT Chest pending further diagnostic work up. Lung nodular opacities - Current consults: I/D, Pulmonology, Thoracic Surgery, Cardiology - Differential included: infectious(bacterial/fungal/IE), autoimmune/oncologic ( sarcoidosis/lymphoma), molar , atypical pneumonia, metastatic ovarian carcinoma - Biopsy completed with thoracic surgery, 12/25 - Pathology report pending - Pleural fluid - no malignant cells - Fungal direct prep - no hyphae/yeast, Fungal Cx pending - Bacterial stain - many mononucleated cells, Bacterial Cx - AFB Cx pending - Mycobacterial Cx pending - Chest tube removed today, dressing to be removed after 3 days and follow up with Dr. Plunkett (thoracic surgeon) in 1 week - Not currently on abx: ID did not recommend; pulm recommended for possible atypical pneumonia - will hold off - Mycoplasma and Legionella labs pending - Rickettsia IgM and IgG pending - Elevated ESR - Outpatient TB quantiferon neg (12/21) - Dr. Ott ordered 24 hour collection of calcium - wnl <150 in 24 hours and Urine Ca < 5% - Lyme and RF neg - Anti-CCP test neg - Serum Hcg <1 and UPreg neg - HIV test pending - Other labs pending from the office include, DIONTE level, FLORIDALMA reflex, ANCA reflex , anti-GBM - Cards: no need for DUANE given preliminary biopsy finding of granuloma and lack of evidence to suspect possible septic emboli CT finding L ovarian cyst - Pelvic US to r/ot possible ovarian cancer given CT finding of small ovarian cyst and pulmonary nodules (possible lung metastasis) - normal ovaries and uterus, only small amount of pelvic fluid noted Anemia of chronic disease vs. iron deficiency vs. thalassemia - Pt Hgb is 10 HCT 29.4 - Pt reported metrorrhagia and lifelong personal and family hx of anemia possibly indicative of thalassemia - Iron studies demonstrate low Fe, low transferrin saturation, nl TIBC and >80 RDW - Stable, follow up on an outpatient basis VTE Prophylaxis - Young age and mobile therefore will hold off chemical prophylaxis pending clinical course - ADRIANA + SCDs Code - Full Disposition - pending diagnostic and procedural work up Resident Involvement: Resident Care Provided Care Provided: Adult Hospital Medicine Reviewed: Pt Seen/Exam by Me History Please see my Attending Addendum on DC Summary completed the same day
--- NOTE | 2016-12-26 13:46 | DIAGNOSTIC IMAGING REPORT ---
CHEST ONE VIEW PORTABLE CLINICAL HISTORY: 21 years-old Female presenting with chest tube removal . TECHNIQUE: Portable upright AP view of the chest was obtained. COMPARISON: 12/26/2016 at 8:12 AM. FINDINGS: Interval removal of the large bore right pleural drain. Cardiomediastinal silhouette normal. Previously noted vague nodular opacities with a lower lobe predominance are better appreciated on chest CT from 12/22/2016. Trace right effusion may be present. No pneumothorax. Osseous structures normal. Upper abdomen normal. IMPRESSION: 1. No pneumothorax status post right pleural drain removal. Trace right pleural effusion may be present. 2. Multifocal nodular opacities with a basilar predominance better demonstrated on CT from 12/22/2016. Electronically signed by: Fidel Cheng M.D. 12/26/2016 1:45 PM Dictated Date/Time: 12/26/2016 1:42 PM
--- NOTE | 2016-12-26 14:56 | Progress Note ---
Subjective Date of Service: Dec 26, 2016. Subjective remains afebrile. all cultures negative, s/p wedge biopsy, tolerated well. path pending, afb smear pending, fungal smear negative, gram stain negative, routine culture pending. initial path with granuloma. IGRA, HIV, legionella, mycoplasma pending. wbc nml. Problem List Medical Problems: (1) Costochondritis Status: Acute Objective Vital Signs Date Time Temp Pulse Resp B/P (MAP) Pulse Ox O2 Delivery O2 Flow Rate FiO2 12/26/16 12:15 36.8 62 16 112/70 (84) 97 Room Air 12/26/16 08:15 Room Air 12/26/16 07:42 36.7 56 15 119/67 (84) 99 Room Air 12/26/16 03:01 36.5 56 14 96/58 (71) 99 Room Air 12/26/16 01:00 Room Air 12/25/16 23:16 36.7 76 14 103/66 (78) 97 Room Air 12/25/16 22:50 36.9 77 18 104/67 (79) 100 Room Air 12/25/16 21:44 36.8 80 18 114/72 (86) 100 Room Air 12/25/16 20:55 36.3 73 18 123/80 (94) 100 Room Air 12/25/16 20:22 37.2 72 18 127/87 (100) 100 Room Air 12/25/16 20:00 Room Air 12/25/16 19:58 Room Air 12/25/16 19:45 36.7 69 18 136/77 (96) 100 Room Air 12/25/16 19:15 68 20 127/75 97 Room Air 12/25/16 19:00 67 20 123/81 100 Room Air 12/25/16 18:45 73 11 117/76 99 Room Air 12/25/16 18:30 70 13 126/82 100 Room Air 12/25/16 18:15 80 20 129/73 99 Room Air 12/25/16 18:00 36.6 72 20 126/86 100 Room Air 12/25/16 17:55 87 20 138/87 100 Room Air 12/25/16 17:45 69 16 135/84 99 Nasal Cannula 2 12/25/16 17:35 71 12 119/80 100 Nasal Cannula 2 12/25/16 17:25 83 24 120/86 99 Oxymask 10 12/25/16 17:15 91 24 130/83 100 Oxymask 10 12/25/16 17:07 36.0 96 20 134/85 96 Oxymask 10 Laboratory Results Item Value Date Time Blood Culture - Preliminary Resulted 12/22/16 2232 Blood NO GROWTH TO DATE. Blood Culture - Preliminary Resulted 12/22/16 2254 Blood NO GROWTH TO DATE. Gram Stain - Final Resulted 12/25/16 1650 Lung Tissue Right Middle Lobe Fungal Smear - Final Resulted 12/25/16 1650 Lung Tissue Right Middle Lobe Blood Culture - Preliminary Resulted 12/21/16 1546 Blood NO GROWTH TO DATE. Blood Culture - Preliminary Resulted 12/21/16 1546 Blood NO GROWTH TO DATE. Gram Stain - Final Resulted 12/25/16 1650 Lung Tissue Right Middle Lobe Urine Culture - Preliminary Resulted 12/25/16 1245 Urine , Clean Catch NO GROWTH - LESS THAN 1,000 COLONIES/... Last 24 Hours Test 12/26/16 07:11 Creatinine 0.50 mg/dl Est Creatinine Clear Calc Drug Dose 160.0 ml/min Estimated GFR () > 150.0 Estimated GFR (Non- 137.4 Assessment and Plan (1) Lung nodules Assessment & Plan: uncertain etiology, biopsy pending,awaiting f routine, fungal, afb cultures and pathology. HIV, IGRA pending, follow results. all blood cultures remain negative. remains afebrile. Follow biopsy results. consider DIONTE level as well although atypical for sarcoid Continued [facility] stay due to: other (pending work up )
[2016-12-26 15:28] VITALS: BP 98/54; PULSE 61; TEMP 36.7; O2SAT 97
--- NOTE | 2016-12-26 15:40 | SURGERY PROGRESS NOTE ---
DATE: 12/26/2016 DATE: 12/26/2016 Ms. Odom was seen today 1 day status post thorascopic biopsy right middle lobe and right lower lobe nodules. It appears that we are dealing with a granulomatous process. It may well be sarcoidosis. We removed her chest tube today. Her x-ray looks very good. Her pain is greatly improved. From my standpoint, this patient can be discharged when the primary service agrees. She looks very good clinically. I have discussed this case with Dr. Naylor.
--- NOTE | 2016-12-26 15:44 | Pulmonology Progress Note ---
Pulmonary Progress Note Date of Service Dec 26, 2016. Attending Dr. Argueta Subjective Patient seen and examined. S/p wedge biopsy of RML and RLL. S/p removal of chest tube. Pain adequately controlled. She denies any shortness of breath, dyspnea on exertion. Objective VS: MAXIMUM TEMPERATURE 36.8, blood pressure 96/54-119/67, pulse 56-62 respiratory rate 14-16 pulse ox 90 11/06/1998 percent on room air. She is currently 1.5 L positive last 24 hours Gen: Awake alert oriented 3, no acute respiratory distress CVS: S1-S2, regular rate and rhythm Chest: Coarse breath sounds bilaterally greater on the right than the left Abd: Soft, nontender and nondistended mouth sounds positive Ext: No edema, no clubbing, no cyanosis bilaterally Labs reviewed--Creatinine 0.5 Previous labs Pre-ALB:8.1 (L) Iron:25 Transferrin:190 CCP:<0.40 Pending: DIONTE FLORIDALMA screen Anti-Proteinase 3 Anti-Myeloperoxidase ANCA Glomerular Base Memb Ab MICRO: Blood x2 No growth to date MEDS: 1)Naproxyn 2)Ultram 3)Duo-Neb 4) Lovenox 40 mg subcutaneous 5) docusate 100 mg 6)Tylenol 7)Oxycodone Pleural fluid pathology 12/25/2016 FINAL DIAGNOSIS PLEURAL FLUID, THORACENTESIS: 1. FEW BENIGN MESOTHELIAL CELLS. 2. LYMPHOCYTES AND MONOCYTES. 3. NO MALIGNANT CELLS SEEN. Right lower lobe and right middle lung biopsy-- 12/25/2016 pending Chest x-ray 12/26/2016 IMPRESSION: 1. No pneumothorax status post right pleural drain removal. Trace right pleural effusion may be present. 2. Multifocal nodular opacities with a basilar predominance better demonstrated on CT from 12/22/2016. Thoracic ultrasound: There is appropriate lung sliding at the bases no signs of pleural effusion, there is good apposition of the visceral parietal pleura as well as positive starry night suggesting pleural visceral apposition and no signs of thorax Assessment & Plan Pleurisy Multiple pulmonary nodules Patient has had aggressive change in her CT scan of the thorax with the last 3 weeks associated with pleuritic chest . Infection, cancer and inflammatory conditions are still possible and multiple studies are still pending. She remains afebrile. Patient is s/p surgical lung biopsy of RML and RLL, on 2016 results official report pending, however preliminary suggestive of granulomatous disease. Pleural fluid sent from chest tube-shows no malignant cells. Continue with current pain management regiment Quantiferon gold and HIV pending as well as immunological studies. Continue with incentive spirometry and DVT prophylaxis Data Medications: Current Inpatient Medications Medications (Trade) Dose Ordered Sig/Mak Route Start Time Stop Time Status Last Admin Dose Admin Albuterol/ Ipratropium (Duoneb) 3 ml Q4 PRN INH 12/22/16 23:00 01/21/17 22:59 Acetaminophen (Tylenol Tab) 650 mg Q4H PRN PO 12/22/16 23:00 01/21/17 22:59 Ondansetron HCl (Zofran Inj) 4 mg Q4H PRN IV 12/25/16 17:00 01/24/17 16:59 Docusate Sodium (coLACE CAP) 100 mg BID PO 12/25/16 20:00 01/24/17 19:59 12/26/16 09:14 100 MG Ketorolac Tromethamine (Toradol Inj) 15 mg Q8H IV. 12/25/16 20:00 12/27/16 12:01 12/26/16 12:23 15 MG Morphine Sulfate (MoRPHine SULFATE INJ) Q1H PRN IV 12/25/16 17:00 01/08/17 16:59 12/26/16 09:09 2 MG Oxycodone HCl (Roxicodone Immediate Rel Tab) 5 mg Q6H PRN PO 12/25/16 17:00 01/08/17 16:59 12/26/16 14:51 5 MG Acetaminophen 100 ml @ 400 mls/hr Q8H IV 12/25/16 18:00 01/24/17 16:59 12/26/16 11:00 400 MLS/HR Enoxaparin Sodium (Lovenox Inj) 40 mg QAM SQ 12/26/16 08:00 01/25/17 07:59 12/26/16 10:45 40 MG Naproxen (Naprosyn Tab) 500 mg BID PO 12/26/16 09:00 01/25/17 08:59 12/26/16 10:47 500 MG I & O: 24-Hour Column 12/27/16 08:00 Intake Total 798 ml Output Total 40 ml Balance 758 ml Vital Signs: Date Time Temp Pulse Resp B/P (MAP) Pulse Ox O2 Delivery O2 Flow Rate FiO2 12/26/16 12:15 36.8 62 16 112/70 (84) 97 Room Air 12/26/16 08:15 Room Air 12/26/16 07:42 36.7 56 15 119/67 (84) 99 Room Air 12/26/16 03:01 36.5 56 14 96/58 (71) 99 Room Air 12/26/16 01:00 Room Air 12/25/16 23:16 36.7 76 14 103/66 (78) 97 Room Air 12/25/16 22:50 36.9 77 18 104/67 (79) 100 Room Air 12/25/16 21:44 36.8 80 18 114/72 (86) 100 Room Air 12/25/16 20:55 36.3 73 18 123/80 (94) 100 Room Air 12/25/16 20:22 37.2 72 18 127/87 (100) 100 Room Air 12/25/16 20:00 Room Air 12/25/16 19:58 Room Air 12/25/16 19:45 36.7 69 18 136/77 (96) 100 Room Air 12/25/16 19:15 68 20 127/75 97 Room Air 12/25/16 19:00 67 20 123/81 100 Room Air 12/25/16 18:45 73 11 117/76 99 Room Air 12/25/16 18:30 70 13 126/82 100 Room Air 12/25/16 18:15 80 20 129/73 99 Room Air 12/25/16 18:00 36.6 72 20 126/86 100 Room Air 12/25/16 17:55 87 20 138/87 100 Room Air 12/25/16 17:45 69 16 135/84 99 Nasal Cannula 2 12/25/16 17:35 71 12 119/80 100 Nasal Cannula 2 12/25/16 17:25 83 24 120/86 99 Oxymask 10 12/25/16 17:15 91 24 130/83 100 Oxymask 10 12/25/16 17:07 36.0 96 20 134/85 96 Oxymask 10 Laboratory Results: Last 24 Hours Test 12/26/16 07:11 Creatinine 0.50 mg/dl Est Creatinine Clear Calc Drug Dose 160.0 ml/min Estimated GFR () > 150.0 Estimated GFR (Non- 137.4
[2016-12-26] MEDS ORDERED: TRAM-10 PO (17:23)
--- NOTE | 2016-12-26 17:23 | Discharge Instructions ---
Discharge Instructions Date of Service Dec 26, 2016. Admission Reason for Admission: Pneumonia, Pleurisy Discharge Discharge Diagnosis / Problem: unknown pulmonary nodules, pleuritic chest pain Discharge Goals Goal(s): Diagnostic testing, Therapeutic intervention Activity Recommendations Activity Limitations: resume your previous activity . Instructions / Follow-Up Instructions / Follow-Up You were admitted to expedite your work up for progressive nodular opacities on chest CT and to control your chest pain. You were evaluated by pulmonology, cardiology, infectious disease and thoracic surgery. We checked multiple labs to figure out the cause of your chest pain and lung nodules. You had biopsies of your lung on 12/25. The preliminary results are consistent with a granuloma but multiple tests and cultures are pending to characterize the nodules specifically. Your TB test was negative which was considered as a possible cause. Of note: Your abdominal CT was concerning for an ovarian cyst on the left ovary. We followed it up with an ultrasound and your ovaries and uterus were normal. You were also found to be mildly anemic which could be from your illness or given your report of lifelong anemia and family history possibly thalassemia which you should follow up with your family doctor. Follow up with: -Dr. Naylor, fabrication lead in 1 week -Dr. Plunkett, thoracic surgeon in 1 week You can remove dressing on chest tube cite after 3 days Please go to the nearest emergency room/hospital if you have fever, shortness of breath, coughing up blood or worsening of symptoms Current Hospital Diet Patient's current hospital diet: Regular Diet Discharge Diet Recommended Diet: Regular Diet Procedures Procedures Performed: Thorascopic Right Pulmonary Wedge Resection with Biopsies x2 Pending Studies Studies pending at discharge: yes List of pending studies: Biopsy cultures Immunologic studies Medical Emergencies . Who to Call and When: Medical Emergencies: If at any time you feel your situation is an emergency, please call 911 immediately. . Non-Emergent Contact Non-Emergency issues call your: Primary Care Provider Call Non-Emergent contact if: you have a fever, your pain is not controlled If coughing up blood, having shortness of breath, fever or worsening of symptoms . . "Provider Documentation" section prepared by Ideal Me Ricky. . VTE Core Measure Inpt VTE Proph given/why not?: T.E.D. Stockings, SCD's, Treatment not indicated
[2016-12-26 18:56] VITALS: BP 98/54; PULSE 61; TEMP 36.7; O2SAT 97
--- NOTE | 2016-12-26 18:56 | Discharge Summary ---
Discharge Summary Date of Service Dec 26, 2016. (Sarina García M.D.) Discharge Summary Admission Date: Dec 25, 2016 at 17:26 Discharge Date: Dec 26, 2016 Discharge Disposition: Home Principal Diagnosis: Pulmonary nodules unspecified Problems/Secondary Diagnoses: Pleuritic chest pain L ovarian cyst Immunizations: Have You Had Influenza Vaccine: Unknown History of Tetanus Vaccine?: Unknown History of Pneumococcal: No History of Hepatitis B Vaccine: Yes (Sarina García M.D.) Problems/Secondary Diagnoses: Anemia of chronic disease (Justine Anthony MD) Medication Reconciliation Continued Medications: Naproxen (Naprosyn) 500 Mg Tab 500 MG PO BID, #60 TAB Tramadol (Ultram) 50 Mg Tab 1 TAB PO QID PRN for Pain for 30 Days, #120 TAB Discharge Exam General Appearance: + mild distress Respiratory/Chest: normal breath sounds, no respiratory distress, + crackles ( R sided crackles), + pertinent finding (chest tube drained about 200mls of serosanguinous fluid) Cardiovascular: regular rate, rhythm Abdomen: normal bowel sounds, non tender, soft Extremities: non-tender, no pedal edema Neurologic/Psychiatric: alert, oriented x 3 Constitutional: No fever Respiratory: + shortness of breath Cardiovascular: + chest pain Abdomen: No pain, No nausea, No vomiting Female : No dysuria (Sarina García M.D.) Hospital Course 21 year old female admitted for expedited work up and control of pleuritic chest pain and progressive nodular opacities found on CT Chest. Pulmonary nodule/chest pain I/D, Pulmonology, Thoracic Surgery, and Cardiology were consulted. Our differential included: infectious (bacterial/fungal/IE), autoimmune/oncologic ( sarcoidosis/lymphoma), molar , atypical pneumonia, metastatic ovarian carcinoma. She was found to have an elevated ESR. Outpatient TB quantiferon ordered 12/[address] Ott ordered 24 hour collection of calcium which was <150 in 24 hours and Urine Ca < 5%. Lyme titers were also negative. RF and anti-CCP test was negative. Molar was ruled out by negative urine test and serum Hcg <1. Cardiology ordered TTE which was normal and did not see a need for DUANE given preliminary biopsy finding of granuloma and lack of evidence to suspect possible septic emboli. Biopsy was obtained by thoracic surgery on 12/25 and chest tube placed. Chest x- ray was done which did not show a pneumothorax and confirmed placement. Chest tube removed on day of discharge and followed by a normal chest x-ray. As of the day of discharge, biopsy pathology report was pending. Pleural fluid pathology did not show malignant cells. Fungal direct prep did not reveal hyphae /yeast and fungal culture was pending. The bacterial stain revealed many mononucleated cells but the culture is pending. Acid Fast Bacilli and mycobacterial cultures are also pending. Of note: patient was not on antibiotics per ID recommendation. Pulmonary had recommended antibiotics for possible atypical pneumonia but we held off as Mycoplasma and Legionella labs were pending. Patient Instructed to: - Remove chest tube site dressing in 3 days and follow up with thoracic surgery , Dr. Plunkett in 1 week. - Follow up with Dr. Naylor in 1 week to follow up on pending results Anemia of chronic disease vs. iron deficiency vs. thalassemia Patient was found to have a hemoglobin of 10. She reported metrorrhagia and lifelong personal and family history of anemia which could possibly indicative thalassemia. Iron studies demonstrated low Fe, low transferrin saturation, normal TIBC and >80 RDW. Given acute nature of low hemoglobin, anemia of chronic disease was also ascertained. -Please follow up hemoglobin on an outpatient basis Incidental CT finding L ovarian cyst Pelvic US transvaginal and transabdominal ordered to rule out possible ovarian cancer given CT finding of small ovarian cyst and pulmonary nodules (possible lung metastasis) . US revealed normal ovaries and uterus, with only a small amount of pelvic fluid. VTE Prophylaxis Given she was a young patient and mobile chemical VTE prophylaxis was held. She had TEDs and SCDs. Total Time Spent: Greater than 30 minutes This includes examination of the patient, discharge planning, medication reconciliation, and communication with other providers. (Sarina García M.D.) Discharge Instructions Please refer to the electronic Patient Visit Report (Discharge Instructions) for additional information. (Sarina García M.D.) Follow-Up Follow up with Dr. Naylor and Dr. Plunkett (Sarina García M.D.) Additional Copies To Rocky Naylor M.D. Reviewed: Pt Seen/Exam by Me (Justine Anthony MD) History Resident Physician Supervision Note: I interviewed and examined the patient. Discussed with and agree with findings and plan as documented in the note. Any exceptions or clarifications are listed here: This patient is a 21 year old female with worsening pleuritic bilateral chest pain and progressive nodular opacities on CT Chest who was admitted to expedite workup and for control of her pleuritic chest pain. She remains afebrile with no signs of sepsis or bacteremia. She had her chest tube removed today and is doing well. Her pain is controlled with naproxen. Initial pathology from her wedge biopsy are showing granulomatous disease, however the final pathology result was still pending at the time of discharge. Discussed her case with the patient with her parents at the bedside. They're planning on getting what sounds like a VIP second opinion at the [facility] through the mother's employer. This will be expedited in the next 1-2 days. Patient denies hemoptysis or cough. No acute distress, alert awake oriented 3 Anicteric sclera, oropharynx is clear Regular rate and rhythm, 1/6 systolic ejection murmur Lungs with fine crackles at the bases, otherwise clear Abdomen positive bowel sounds nontender nondistended, soft Extremities no edema, no joint effusions or tenderness Skin no rashes, dressings in place over the chest tube and surgical sites and are clean dry and intact Lung nodular opacities Granulomatous on pathology-could be sarcoidosis versus infection. Quantiferon Gold is negative. She will have final pathology results sent to her doctor in [place], as well as follow-up here with thoracic surgery and pulmonology. She definitely has an elevated ESR consistent inflammatory disease. -Continue naproxen and tramadol when necessary for pain after discharge CT finding L ovarian cyst - pelvic ultrasound shows no cyst-perhaps it ruptured since the day prior, no further follow-up needed Anemia-normocytic, iron studies consistent with anemia of chronic disease.-She states this is lifelong but did also used to have metrorrhagia, however has a family history of anemia in her mom and sister. I suspect that this is a thalassemia with possible superimposed anemia of chronic disease, perhaps a chronic autoimmune process causing inflammation -Follow CBC as an outpatient Stable for discharge home with close follow-up in [place] Documented By: Justine Anthony (Justine Anthony MD)
[2016-12-27 14:38] LABS: LEGIONELLA ANTIGEN NOT DETECTED (NOT DETECTED)
[2016-12-27 18:40] LABS: QUANTIF TB AG-NIL <0.00 IU/ML
[2017-01-04 08:33] LABS: RMSF IgM AB Not Detected (Not Detected)
== END 2016-12-26 19:40 | disposition home or self-care (01) | DRG 167 ==
LOC: INTOOBSV 18:12 → C.4E 18:12 → OBSVTOIN 12-25 17:26 → ENRESERV 12-25 19:27 → C.MSW 12-25 19:52
PROVIDERS: ADMIT Internal Medicine; ATTEND Family Medicine
PROC: 0B9N40Z Drainage of Right Pleura with Drainage Device, Percutaneous Endoscopic Approach (ICD-10-PCS; principal; 2016-12-25 11:30)
PROC: 0BB Respiratory System, Excision (ICD-10-PCS; principal; 2016-12-25 11:30)
PROC: 0BB Respiratory System, Excision (ICD-10-PCS; principal; 2016-12-25 11:30)
DX: R91.8 Other nonspecific abnormal finding of lung field (principal); E46 Unspecified protein-calorie malnutrition; D86.0 Sarcoidosis of lung; J84.10 Pulmonary fibrosis, unspecified; R09.1 Pleurisy; N83.202 Unspecified ovarian cyst, left side; D50.9 Iron deficiency anemia, unspecified; D63.8 Anemia in other chronic diseases classified elsewhere; D56.9 Thalassemia, unspecified; N64.9 Disorder of breast, unspecified; R93.429 Abnormal radiologic findings on diagnostic imaging of unspecified kidney; F12.20 Cannabis dependence, uncomplicated; F17.210 Nicotine dependence, cigarettes, uncomplicated; Z88.0 Allergy status to penicillin; Z83.2 Family history of diseases of the blood and blood-forming organs and certain disorders involving the immune mechanism; Z82.61 Family history of arthritis; Z83.3 Family history of diabetes mellitus

== ENCOUNTER → 2016-12-22 | Outpatient (CLI) | payer BC ==
[~2016-12-22] MED LIST changes: +CLINDAMYCIN PHOS 150 MG/ML 2 ML VIAL ONE; +DEXAMETHASONE SOD INJ 4 MG/ML VIAL ONE; +FENTANYL CITRATE INJ 50 MCG/1 ML 2 ML VIAL ONE; +GLYCOPYRROLATE INJ 0.2 MG/ML VIAL ONE; +MIDAZOLAM HCL 1 MG/ML 2ML VIAL ONE; +NEOSTIGMINE METHYLSULFATE 5 MG/5 ML SYR ONE; +ONDANSETRON INJ 2 MG/ML 2 ML VIAL ONE; +OPTIRAY 320 IV PRN; +PHENYLEPHRINE 100MCG/ML 5ML SYR ONE; +PROPOFOL IV EMULSION 10 MG/ML 20 ML VIAL IV ONE; +ROCURONIUM BROMIDE 10 MG/ML 5 ML VIAL IV ONE
--- NOTE | 2016-12-22 15:20 | DIAGNOSTIC IMAGING REPORT ---
ADDENDUM Addendum: A neoplastic etiology is considered unlikely given the rapid progression and patient's age. The only neoplastic process within the differential is lymphoma. Electronically signed by: Sloan Slater M.D. 12/22/2016 3:37 PM Dictated Date/Time: 12/22/2016 3:[address] OF THE CHEST WITH IV CONTRAST CLINICAL HISTORY: Lung nodule. COMPARISON STUDY: Chest CT December 06, 2016. TECHNIQUE: Following IV administration of Optiray-320, helical axial images of the chest were obtained. Sagittal and coronal reconstructions were viewed as well as maximal intensity projections on an independent 3-D workstation. A dose lowering technique was utilized adhering to the principles of ALARA. CT DOSE: 165.42 mGy.cm FINDINGS: No enlarged axillary, mediastinal or hilar lymph nodes are present. The size of the heart is normal. There is no pericardial effusion. Central airways are patent. There is no pneumothorax or pleural effusion. There has been significant progression of innumerable lower lobe predominant ill-defined nodular opacities and CT of December 06, 2016. These are most confluent within the left lower lobe. There is peripheral groundglass opacity. Numerous air bronchograms are noted. These are within a peribronchial vascular distribution. Size and number of these lesions has significantly progressed since exam of December 06, 2016. Measurement is difficult due to adjacent groundglass opacity but a well-defined 1.3 cm right middle lobe nodule shown on image 157 previously measured 0.6 cm. Bony thorax and upper abdomen are unremarkable. IMPRESSION: Significant progression of lower lobe predominant innumerable ill-defined nodular opacities in a peribronchovascular distribution since CT of December 06, 2016. The findings are nonspecific and differential considerations include an atypical infectious process such as a fungal infection. In addition, a vasculitis could have this imaging appearance. Alveolar sarcoidosis is within the differential. Additional considerations include cryptogenic organizing pneumonia and drug related process. Electronically signed by: Sloan Slater M.D. 12/22/2016 3:19 PM Dictated Date/Time: 12/22/2016 2:58 PM
== END | disposition home or self-care (01) ==
LOC: C.CTS 14:21
PROVIDERS: ATTEND Internal Medicine Pulmonary Disease
DX: R91.1 Solitary pulmonary nodule (principal); R91.8 Other nonspecific abnormal finding of lung field; R06.02 Shortness of breath

== ENCOUNTER → 2017-01-09 | Outpatient (CLI) | payer BC ==
[~2017-01-09] MED LIST changes: +TRAM-10 PO
--- NOTE | 2017-01-09 09:40 | DIAGNOSTIC IMAGING REPORT ---
CHEST 2 VIEWS ROUTINE CLINICAL HISTORY: R91.1 pulmonary nodule COMPARISON STUDY: 12/26/2016 FINDINGS: Diminished basilar parenchymal nodularity. Slight blunting right lateral gastric angle unchanged. Potential nodularity left pulmonary apex felt to represent overlap artifact. IMPRESSION: Improving basilar nodularity The above report was generated using voice recognition software. It may contain grammatical, syntax or spelling errors. Electronically signed by: Efra Vigil M.D. 01/09/2017 9:39 AM Dictated Date/Time: 01/09/2017 9:38 AM
== END | disposition home or self-care (01) ==
LOC: C.RAD1850 09:27
PROVIDERS: ATTEND Surgery
DX: R91.1 Solitary pulmonary nodule (principal)

== ENCOUNTER → 2017-03-29 | Outpatient (CLI) | payer BC ==
--- NOTE | 2017-03-29 15:56 | DIAGNOSTIC IMAGING REPORT ---
CHEST 2 VIEWS ROUTINE HISTORY: 21 years-old Female SARCOIDOSIS acute atypical chest pain COMPARISON: Chest radiograph 01/09/2017 TECHNIQUE: PA and lateral views of the chest FINDINGS: Cardiomediastinal and hilar silhouettes are within normal limits. No pneumothorax. Surgical suture material is again seen involving the medial right lung base. Persistent blunting of the right costophrenic angle is again seen suggesting scarring and/or trace effusion. There is improved aeration of the lung bases with discrete pulmonary nodules or masses not identified. Bones of the chest appear grossly intact. IMPRESSION: 1. Improved aeration of the lung bases. 2. Surgical suture material of the medial right lung base noted with persistent blunting of the right costophrenic angle suggesting scarring and/or trace effusion. The above report was generated using voice recognition software. It may contain grammatical, syntax or spelling errors. Electronically signed by: Justin Ramirez M.D. 03/29/2017 3:54 PM Dictated Date/Time: 03/29/2017 3:52 PM
== END | disposition home or self-care (01) ==
LOC: C.RAD1850 15:14
PROVIDERS: ATTEND Internal Medicine Pulmonary Disease
DX: D86.9 Sarcoidosis, unspecified (principal)